=== PATIENT | female | born 1935 | race Caucasian/White ===

== ENCOUNTER → 2016-10-27 | Outpatient (CLI) | payer MEDICARE ==
[~2016-10-27] MED LIST: ALN70T; AMLO10TA5; ATN50T; GLUCO/CHON; HCT25T; IRB150T; KCL10CCR; MULT1TAB63; OSCAL PLUS D; SMV20T
--- NOTE | 2016-10-27 16:22 | Diagnostic Imaging Report ---
EXAMINATION: PA and lateral views of the chest. INDICATION: Cough and congestion. Left basilar rales. FINDINGS: The lungs are hyperinflated. The heart size is mildly enlarged. There is a mild pulmonary vascular congestion. No overt pulmonary edema. No effusion or pneumothorax. Mediastinum and alison appear unremarkable. IMPRESSION: Cardiomegaly with mild vascular congestion. Dictated by: Dictated on workstation # [id number]
== END ==
LOC: RAD 15:37
PROVIDERS: ATTEND Internal Medicine
DX: R05 Cough (principal); R09.89 Other specified symptoms and signs involving the circulatory and respiratory systems
CPT/HCPCS: 71020

== ENCOUNTER → 2016-11-25 | Outpatient (CLI) | payer MEDICARE ==
--- OUTSIDE RECORDS SUMMARY | 2016-11-25 09:23 | XMS REPORT | Continuity of Care Document ---
Author Author [facility] Organization [facility] Address Unknown Phone Unavailable Allergies Active Description Code Type Severity Reaction Onset Reported/Identified Relationship to Patient Clinical Status Yes No Known Drug Allergies [id number] Drug Allergy Unknown N/ A 07/25/2008 Medications Problems Date Dx Coded Attending Type Code Diagnosis Diagnosed By 09/08/1424 MEGAN WEBB Ot M79.621 03/28/2014 JHONNY MAYS APRN Ot 787.91 DIARRHEA 04/15/2014 JHONNY MAYS TIMEKEEPER Ot 008.45 INTESTINAL INFECTION DUE TO CLOSTRIDIUM 10/01/2014 CLIVE DUBON MD Ot V76.12 09/19/2015 CLIVE DUBON MD Ot Z12.31 11/03/2015 Ot V76.12 11/03/2015 Ot V76.12 11/03/2015 Ot 793.82 11/03/2015 Ot V76.12 11/03/2015 Ot 793.80 11/03/2015 JHONNY MAYS APRN Ot V76.12 11/03/2015 JHONNY MAYS APRN Ot 786.2 11/03/2015 Ot 787.91 11/03/2015 Ot 008.45 11/03/2015 CLIVE DUBON MD Ot V76.12 11/03/2015 CLIVE DUBON MD Ot Z12.31 12/05/2015 MEGAN WEBB STORM SASH MAKER Ot M79.621 12/11/2015 MEGAN WEBB STORM SASH MAKER Ot M79.621 01/01/2016 MEGAN WEBB Ot M79.621 PAIN IN RIGHT UPPER ARM 03/18/2016 CLIVE DUBON MD Ot 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 03/18/2016 CLIVE DUBON MD Ot I10 ESSENTIAL (PRIMARY) HYPERTENSION 03/18/2016 CLIVE DUBON MD Ot Z79.899 OTHER DRIVABILITY TECHNICIAN (CURRENT) DRUG THERAPY 04/06/2016 CLIVE DUBON MD Ot E88.09 OTH DISORDERS OF PLASMA-PROTEIN METABOLI 04/06/2016 CLIVE DUBON MD Ot I10 ESSENTIAL (PRIMARY) HYPERTENSION 04/06/2016 CLIVE DUBON MD Ot Z79.899 OTHER DRIVABILITY TECHNICIAN (CURRENT) DRUG THERAPY 10/27/2016 Ot V76.12 OTH SCREEN MAMMO-MALIGN NEOPLASM OF DAVID 10/27/2016 Ot 793.82 INCONCLUSIVE MAMMOGRAM 10/27/2016 Ot V76.12 OTH SCREEN MAMMO-MALIGN NEOPLASM OF DAVID 10/27/2016 Ot 793.80 UNSPEC ABNORMAL MAMMOGRAM 10/27/2016 JHONNY MAYS TIMEKEEPER Ot V76.12 OTH SCREEN MAMMO-MALIGN NEOPLASM OF DAVID 10/27/2016 JHONNY MAYS TIMEKEEPER Ot 786.2 COUGH 10/27/2016 Ot 787.91 DIARRHEA 10/27/2016 Ot 008.45 INTESTINAL INFECTION DUE TO CLOSTRIDIUM 10/27/2016 CLIVE DUBON MD Ot V76.12 OTH SCREEN MAMMO-MALIGN NEOPLASM OF DAVID 10/27/2016 CLIVE DUBON MD Ot Z12.31 ENCNTR SCREEN MAMMOGRAM FOR MALIGNANT NE 10/27/2016 CLIVE DUBON MD Ot E88.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 Visit Date/Time Discharge Status Pt. Type Provider Facility Loc./Unit Complaint [id number] 01/01/2016 13:30:00 2015 14:25:00 DIS Outpatient MEGAN WEBB [facility] REHAB R HUMERUS FRACTURE [id number] 08/29/2015 11:10:00 2014 23:59:59 CLS Outpatient CLIVE DUBON MD [facility] RAD ROUTINE SCREENING [id number] 08/14/2014 08:19:00 2013 23:59:59 CLS Outpatient CLIVE DUBON MD [facility] RAD ROUTINE [id number] 01/16/2014 05:28:00 2013 00:01:00 DIS Outpatient JHONNY MAYS TIMEKEEPER [facility] LAB C DIFF [id number] 12/28/2013 10:34:00 2013 00:01:00 DIS Outpatient JHONNY MAYS TIMEKEEPER [facility] LAB DIARRHEA [id number] 12/17/2013 11:29:00 2013 23:59:59 CLS Outpatient JHONNY MAYS TIMEKEEPER [facility] RAD COUGH [id number] 08/08/2013 08:37:00 2012 23:59:59 CLS Outpatient JHONNY MAYS TIMEKEEPER [facility] RAD ROUTINE [id number] 10/27/2016 15:37:00 ACT Outpatient CLIVE DUBON MD [facility] RAD COUGH,CONGESTION [id number] 03/16/2016 09:09:00 ACT Outpatient CLIVE DUBON MD [facility] LAB HTN, HALF-WAY MED USE,PLASMA PROTEIN META DISORDE [id number] 04/16/2014 00:00:00 Document Registration [id number] 03/29/2014 00:00:00 Document Registration [id number] 07/11/2012 08:04:00 Document Registration [id number] 06/21/2012 14:16:00 Document Registration [id number] 05/24/2011 09:42:00 Document Registration [id number] 05/15/2010 08:51:00 Document Registration
--- NOTE | 2016-11-26 09:41 | Diagnostic Imaging Report ---
Bilateral screening mammogram The current study was also evaluated with a Computer Aided Detection (CAD) system. Indication: Screening. No current complaints stated on the questionnaire. COMPARISON: 08/29/15. FINDINGS: The breasts are composed of scattered fibroglandular densities. A somewhat nodular appearance to the parenchyma is seen, similar to prior multiple exams including 2012 study. There is however one area that appears slightly more prominent in the central aspect of the right MLO view which could be technique or positional related accentuating this region measuring 9 mm. The left breast demonstrate no definite change. IMPRESSION: Focal compression view and ultrasound evaluation for slightly increased density asymmetry measuring 9 mm, seen in central location in the right MLO view. BI-RADS 0. ACR BI-RADS Category 0: Incomplete. (Needs additional imaging evaluation). Result letter will be mailed to the patient. Note: At least 10% of breast cancer is not imaged by mammography. Dictated by: Dictated on workstation # [id number]
== END ==
LOC: RAD 09:18
PROVIDERS: ATTEND Internal Medicine
DX: Z12.31 Encounter for screening mammogram for malignant neoplasm of breast (principal)
CPT/HCPCS: 77067

== ENCOUNTER → 2016-12-03 | Outpatient (CLI) | payer MEDICARE ==
--- OUTSIDE RECORDS SUMMARY | 2016-12-03 08:15 | XMS REPORT | Continuity of Care Document ---
Author Author [facility] Organization [facility] Address Unknown Phone Unavailable Allergies Active Description Code Type Severity Reaction Onset Reported/Identified Relationship to Patient Clinical Status Yes No Known Drug Allergies [id number] Drug Allergy Unknown N/ A 07/25/2008 Medications Problems Date Dx Coded Attending Type Code Diagnosis Diagnosed By 09/08/1424 MEGAN WEBB Ot M79.621 03/28/2014 JHONNY MAYS APRN Ot 787.91 DIARRHEA 04/15/2014 JHONNY MAYS GRINDER OUTSIDE DIAMETER Ot 008.45 INTESTINAL INFECTION DUE TO CLOSTRIDIUM [...] DUBON MD Ot Z12.31 12/05/2015 MEGAN WEBB TOWBOAT OPERATOR Ot M79.621 12/11/2015 MEGAN WEBB TOWBOAT OPERATOR Ot M79.621 01/01/2016 MEGAN WEBB Ot M79.621 PAIN IN RIGHT UPPER ARM 03/18/2016 CLIVE DUBON MD Ot 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 03/18/2016 CLIVE DUBON MD Ot I10 ESSENTIAL (PRIMARY) HYPERTENSION 03/18/2016 CLIVE DUBON MD Ot Z79.899 OTHER FURRIER DESIGNER (CURRENT) DRUG THERAPY 04/06/2016 CLIVE DUBON MD Ot E88.09 OTH DISORDERS OF PLASMA-PROTEIN METABOLI 04/06/2016 CLIVE DUBON MD Ot I10 ESSENTIAL (PRIMARY) HYPERTENSION 04/06/2016 CLIVE DUBON MD Ot Z79.899 OTHER FURRIER DESIGNER (CURRENT) DRUG THERAPY 10/27/2016 Ot V76.12 OTH SCREEN MAMMO-MALIGN NEOPLASM OF DAVID 10/27/2016 Ot 793.82 INCONCLUSIVE MAMMOGRAM 10/27/2016 Ot V76.12 OTH SCREEN MAMMO-MALIGN NEOPLASM OF DAVID 10/27/2016 Ot 793.80 UNSPEC ABNORMAL MAMMOGRAM 10/27/2016 JHONNY MAYS GRINDER OUTSIDE DIAMETER Ot V76.12 OTH SCREEN MAMMO-MALIGN NEOPLASM OF DAVID 10/27/2016 JHONNY MAYS GRINDER OUTSIDE DIAMETER Ot 786.2 COUGH 10/27/2016 Ot 787.91 DIARRHEA [...] 10/27/2016 CLIVE DUBON MD Ot Z79.899 OTHER FURRIER DESIGNER (CURRENT) DRUG THERAPY 11/18/2016 CLIVE DUBON MD Ot R05 COUGH 11/18/2016 CLIVE DUBON MD Ot R09.89 OTH SYMPTOMS AND SIGNS INVOLVING THE CIR 11/24/2016 CLIVE DUBON MD Ot R05 COUGH 11/24/2016 CLIVE DUBON MD Ot R09.89 OTH SYMPTOMS AND SIGNS INVOLVING THE CIR 11/25/2016 Ot 793.82 INCONCLUSIVE MAMMOGRAM 11/25/2016 Ot V76.12 OTH SCREEN MAMMO-MALIGN NEOPLASM OF DAVID 11/25/2016 Ot 793.80 UNSPEC ABNORMAL MAMMOGRAM 11/25/2016 JHONNY MAYS GRINDER OUTSIDE DIAMETER Ot V76.12 OTH SCREEN MAMMO-MALIGN NEOPLASM OF DAVID 11/25/2016 JHONNY MAYS GRINDER OUTSIDE DIAMETER Ot 786.2 COUGH 11/25/2016 Ot 787.91 DIARRHEA 11/25/2016 Ot 008.45 INTESTINAL INFECTION DUE TO CLOSTRIDIUM 11/25/2016 CLIVE DUBON MD Ot V76.12 OT SCREEN MAMMO-MALIGN NEOPLASM OF DAVID 11/25/2016 CLIVE DUBON MD Ot Z12.31 ENCNTR SCREEN MAMMOGRAM FOR MALIGNANT NE 11/25/2016 CLIVE DUBON MD Ot 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 Visit Date/Time Discharge Status Pt. Type Provider Facility Loc./Unit Complaint [id number] 01/01/2016 13:30:00 2015 14:25:00 DIS Outpatient MEGAN WEBB [facility] REHAB R HUMERUS FRACTURE [id number] 08/29/2015 11:10:00 2014 23:59:59 CLS Outpatient CLIVE DUBON MD [facility] RAD ROUTINE SCREENING [id number] 08/14/2014 08:19:00 2013 23:59:59 CLS Outpatient CLIVE DUBON MD [facility] RAD ROUTINE [id number] 01/16/2014 05:28:00 2013 00:01:00 DIS Outpatient JHONNY MAYS APRN [facility] LAB C DIFF [id number] 12/28/2013 10:34:00 2013 00:01:00 DIS Outpatient JHONNY MAYS APRN [facility] LAB DIARRHEA [id number] 12/17/2013 11:29:00 2013 23:59:59 CLS Outpatient JHONNY MAYS APRN [facility] RAD COUGH [id number] 08/08/2013 08:37:00 2012 23:59:59 CLS Outpatient JHONNY MAYS APRN [facility] RAD ROUTINE [id number] 11/25/2016 09:18:00 ACT Outpatient CLIVE DUBON MD [facility] RAD SCREENING [id number] 10/27/2016 15:37:00 ACT Outpatient CLIVE DUBON MD [facility] RAD COUGH,CONGESTION [id number] 03/16/2016 09:09:00 ACT Outpatient CLIVE DUBON MD [facility] LAB HTN, FURRIER DESIGNER MED USE,PLASMA PROTEIN META DISORDE [id number] 04/16/2014 00:00:00 Document Registration [id number] 03/29/2014 00:00:00 Document Registration [id number] 07/11/2012 08:04:00 Document Registration [id number] 06/21/2012 14:16:00 Document Registration [id number] 05/24/2011 09:42:00 Document Registration [id number] 05/15/2010 08:51:00 Document Registration
--- NOTE | 2016-12-03 19:16 | Diagnostic Imaging Report ---
Unilateral diagnostic right mammogram. INDICATION: Abnormal screening mammogram. The current study was also evaluated with a Computer Aided Detection (CAD) system. FINDINGS: The recent screening mammogram performed on 11/25/16 noted a small 9 mm asymmetry in the central aspect of the right breast. Compression views of this area show no definite abnormality. The area in question may have been secondary to superimposition. Even so, I would recommend that ultrasound be performed for further evaluation. IMPRESSION: There is no evidence of malignancy. Ultrasound would be recommended for further evaluation. ACR BI-RADS Category 0: Incomplete. (Needs additional imaging evaluation). Result letter will be mailed to the patient. Note: At least 10% of breast cancer is not imaged by mammography. Dictated by: Dictated on workstation # [id number]
--- NOTE | 2016-12-03 19:50 | Diagnostic Imaging Report ---
INDICATION: Abnormal mammogram. EXAMINATION: Ultrasound of the right breast. FINDINGS: The screening mammogram performed on 11/25/16 noted a small area of increased density in the central aspect of the right breast on the MLO view. The diagnostic mammogram performed earlier today failed to show any definite evidence for malignancy. On this study, there is a small 7 x 5 x 6 mm triangular hypoechoic area in the 8 o'clock position of the right breast, approximately 7 cm deep to the nipple. There is no internal vascularity associated with this finding and this hypoechoic area may merely be secondary to fibroglandular tissue. Even so, the possibility that this is related to a small malignant process should still be considered. I would recommend that an ultrasound-guided biopsy of this area be performed to exclude malignancy. IMPRESSION: 1. The small hypoechoic lesion in the 8 o'clock position of the right breast is questionable for a neoplastic mass. Recommendations as above. 2. These results were called to Dr. Brittany Olivares's office. CRITICAL FINDING ACR BI-RADS Category 4A: Low suspicion of malignancy. Result letter will be mailed to the patient. Note: At least 10% of breast cancer is not imaged by mammography. Dictated by: Dictated on workstation # [id number]
== END ==
LOC: RAD 08:12
PROVIDERS: ATTEND Internal Medicine
DX: R92.8 Other abnormal and inconclusive findings on diagnostic imaging of breast (principal); N63 Unspecified lump in breast

== ENCOUNTER → 2016-12-10 | Outpatient (CLI) | payer MEDICARE ==
[~2016-12-10] VITALS: Ht 157.5 cm; Wt 61.7 kg
[~2016-12-10] MED LIST changes: +LIDOCAINE 1% INJ 20 ML (XYLOCAINE) VIAL ONE
--- OUTSIDE RECORDS SUMMARY | 2016-12-10 09:07 | XMS REPORT | Continuity of Care Document ---
Author Author [facility] Organization [facility] Address Unknown Phone Unavailable Allergies Active Description Code Type Severity Reaction Onset Reported/Identified Relationship to Patient Clinical Status Yes No Known Drug Allergies [id number] Drug Allergy Unknown N/ A 07/25/2008 Medications Problems Date Dx Coded Attending Type Code Diagnosis Diagnosed By 09/08/1424 MEGAN WEBB Ot M79.621 03/28/2014 JHONNY MAYS APRN Ot 787.91 DIARRHEA 04/15/2014 JHONNY MAYS BIT SHAVER Ot 008.45 INTESTINAL INFECTION DUE TO CLOSTRIDIUM [...] DUBON MD Ot Z12.31 12/05/2015 MEGAN WEBB CONTACT CENTER REP Ot M79.621 12/11/2015 MEGAN WEBB CONTACT CENTER REP Ot M79.621 01/01/2016 MEGAN WEBB Ot M79.621 PAIN IN RIGHT UPPER ARM 03/18/2016 CLIVE DUBON MD Ot 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 03/18/2016 CLIVE DUBON MD Ot I10 ESSENTIAL (PRIMARY) HYPERTENSION 03/18/2016 CLIVE DUBON MD Ot Z79.899 OTHER AIR QUALITY CONSULTANT (CURRENT) DRUG THERAPY 04/06/2016 CLIVE DUBON MD Ot E88.09 OTH DISORDERS OF PLASMA-PROTEIN METABOLI 04/06/2016 CLIVE DUBON MD Ot I10 ESSENTIAL (PRIMARY) HYPERTENSION 04/06/2016 CLIVE DUBON MD Ot Z79.899 OTHER AIR QUALITY CONSULTANT (CURRENT) DRUG THERAPY 10/27/2016 Ot V76.12 OTH SCREEN MAMMO-MALIGN NEOPLASM OF DAVID 10/27/2016 Ot 793.82 INCONCLUSIVE MAMMOGRAM 10/27/2016 Ot V76.12 OTH SCREEN MAMMO-MALIGN NEOPLASM OF DAVID 10/27/2016 Ot 793.80 UNSPEC ABNORMAL MAMMOGRAM 10/27/2016 JHONNY MAYS BIT SHAVER Ot V76.12 OTH SCREEN MAMMO-MALIGN NEOPLASM OF DAVID 10/27/2016 JHONNY MAYS BIT SHAVER Ot 786.2 COUGH 10/27/2016 Ot 787.91 DIARRHEA 10/27/2016 Ot 008.45 INTESTINAL INFECTION DUE TO CLOSTRIDIUM 10/27/2016 CLIVE DBUON MD Ot V76.12 OTH SCREEN MAMMO-MALIGN NEOPLASM OF DAVID 10/27/2016 CLIVE DUBON MD Ot Z12.31 ENCNTR SCREEN MAMMOGRAM FOR MALIGNANT NE 10/27/2016 CLIVE DUBON MD Ot E88.09 OTH DISORDERS OF PLASMA-PROTEIN METABOLI 10/27/2016 CLIVE DUBON MD Ot I10 ESSENTIAL (PRIMARY) HYPERTENSION 10/27/2016 CLIVE DUBON MD Ot Z79.899 OTHER AIR QUALITY CONSULTANT (CURRENT) DRUG THERAPY 11/18/2016 CLIVE DUBON MD [...] 793.80 UNSPEC ABNORMAL MAMMOGRAM 11/25/2016 JHONNY MAYS BIT SHAVER Ot V76.12 OTH SCREEN MAMMO-MALIGN NEOPLASM OF DAVID 11/25/2016 JHONNY MAYS BIT SHAVER Ot 786.2 COUGH 11/25/2016 Ot 787.91 DIARRHEA 11/25/2016 Ot 008.45 INTESTINAL INFECTION DUE TO CLOSTRIDIUM 11/25/2016 CLIVE DUBON MD Ot V76.12 OTH SCREEN MAMMO-MALIGN NEOPLASM OF DAVID 11/25/2016 CLIVE DUBON MD Ot Z12.31 ENCNTR SCREEN MAMMOGRAM FOR MALIGNANT NE 11/25/2016 CLIVE DUBON MD Ot E88.09 OTH DISORDERS OF PLASMA-PROTEIN METABOLI 11/25/2016 CLIVE DUBON MD, Ot I10 ESSENTIAL (PRIMARY) HYPERTENSION 11/25/2016 CLIVE DUBON MD Ot Z79.899 OTHER AIR QUALITY CONSULTANT (CURRENT) DRUG THERAPY 11/25/2016 CLIVE DUBON MD, Ot R05 COUGH 11/25/2016 CLIVE DUBON MD, Ot R09.89 OTH SYMPTOMS AND SIGNS INVOLVING THE CIR 12/06/2016 CLIVE DUBON MD Ot R92.2 INCONCLUSIVE MAMMOGRAM 12/07/2016 CLIVE DUBON MD, Ot N63 UNSPECIFIED LUMP IN BREAST 12/07/2016 CLIVE DUBON MD, Ot R92.8 OTH ABN AND INCONCLUSIVE FINDINGS ON DX Procedures Results Encounters ACCT No. Visit Date/Time Discharge Status Pt. Type Provider Facility Loc./Unit Complaint [id number] 01/01/2016 13:30:00 2015 14:25:00 DIS Outpatient MEGAN WEBB [facility] REHAB R HUMERUS FRACTURE [id number] 08/29/2015 11:10:00 2014 23:59:59 CLS Outpatient CLIVE DUBON MD [facility] RAD ROUTINE SCREENING [id number] 08/14/2014 08:19:00 2013 23:59:59 CLS Outpatient CLIVE DUBON MD [facility] RAD ROUTINE [id number] 01/16/2014 05:28:00 2013 00:01:00 DIS Outpatient JHONNY MAYS APRN [facility] LAB C DIFF [id number] 12/28/2013 10:34:00 2013 00:01:00 DIS Outpatient JHONNY MAYS APRN [facility] LAB DIARRHEA [id number] 12/17/2013 11:29:00 2013 23:59:59 CLS Outpatient JHONNY MAYS APRN [facility] RAD COUGH [id number] 08/08/2013 08:37:00 2012 23:59:59 CLS Outpatient JHONNY MAYS APRN [facility] RAD ROUTINE [id number] 12/03/2016 08:12:00 ACT Outpatient CLIVE DUBON MD [facility] RAD ABNORMAL MAMMO [id number] 11/25/2016 09:18:00 ACT Outpatient CLIVE DUBON MD [facility] RAD SCREENING [id number] 10/27/2016 15:37:00 ACT Outpatient CLIVE DUBON MD [facility] RAD COUGH,CONGESTION [id number] 03/16/2016 09:09:00 ACT Outpatient CLIVE DUBON MD [facility] LAB HTN, AIR QUALITY CONSULTANT MED USE,PLASMA PROTEIN META DISORDE [id number] 04/16/2014 00:00:00 Document Registration [id number] 03/29/2014 00:00:00 Document Registration [id number] 07/11/2012 08:04:00 Document Registration [id number] 06/21/2012 14:16:00 Document Registration [id number] 05/24/2011 09:42:00 Document Registration [id number] 05/15/2010 08:51:00 Document Registration
[2016-12-10 09:20] VITALS: BP 128/74
--- NOTE | 2016-12-10 10:52 | Diagnostic Imaging Report ---
EXAM: Right breast ultrasound.. INDICATION: A nodule at 8:00 o'clock zone, 7 cm from the nipple. This study was performed in preparation for biopsy. FINDINGS: Upon scanning in preparation for biopsy, lesion at the 8:00 o'clock zone, 7 cm from the nipple measuring 0.7 x 0.4 x 0.6 cm. Less prominent compared to the prior exam. This was explained to the patient and given its small size, the biopsy could become challenged, given the relatively isoechoic appearance. The patient prefers to have the followup scans in a few months and the biopsy was canceled. IMPRESSION: Slightly less prominent 0.7 cm hypo to isoechoic nodule at the 8:00 o'clock zone, 7 cm from the nipple, in favor of a benign etiology. Biopsy could be difficult due to the small size of the lesion and the relatively isoechoic appearance and the improved appearance is in favor of a benign process. Four-month followup ultrasound is recommended to observe this lesion. BI-RADS 3. ACR BI-RADS Category 3: Probably benign findings. Result letter will be mailed to the patient. Note: At least 10% of breast cancer is not imaged by mammography. The findings were discussed with Ori, the physician environmental engineering assistant, working with Dr. Olivares by Dr. Slaughter at time of dictation. Dictated by: Dictated on workstation # [id number]
== END ==
LOC: RAD 09:03
PROVIDERS: ATTEND Internal Medicine
DX: R92.8 Other abnormal and inconclusive findings on diagnostic imaging of breast (principal)

== ENCOUNTER → 2017-04-20 | Outpatient (CLI) | payer MEDICARE ==
[~2017-04-20] MED LIST changes: -LIDOCAINE 1% INJ 20 ML (XYLOCAINE) VIAL ONE
--- NOTE | 2017-04-20 15:34 | Diagnostic Imaging Report ---
EXAMINATION: Right breast ultrasound. INDICATION: Followup lesion at the 8 o'clock zone. FINDINGS: At the 8 o'clock zone 7 cm from the nipple, there is a lobulated hypoechoic lesion seen with some shadowing noted. This is measuring minimally larger compared to the 12/10/2016 exam but is overall similar to measurements from 12/03/2016. The current measurements are 0.7 x 0.4 x 0.5 cm. This lesion is indeterminate. No internal flow with color Doppler is seen. IMPRESSION: Indeterminate hypoechoic lobulated lesion at the 8 o'clock zone 7 cm from the nipple measuring 7 mm in size. A diagnostic mammogram will be performed to correlate. ACR BI-RADS Category 0: Incomplete. (Needs additional imaging evaluation). Dictated by: Dictated on workstation # [id number]
--- NOTE | 2017-04-20 17:16 | Diagnostic Imaging Report ---
EXAMINATION: Right breast diagnostic mammogram with 2D and 3D mammography. Tomographic images were obtained. INDICATION: Right breast nodule seen on ultrasound. The current study was also evaluated with a Computer Aided Detection (CAD) system. FINDINGS: The ultrasound appears to have a possibly correlating focal asymmetry in the outer aspect of the right breast. This is, however, less defined on the mammographic evaluation. IMPRESSION: 1. Indeterminate lateral left breast focal asymmetry could potentially correspond with lesion that is better seen on ultrasound. It is an indeterminate nodule and evaluation with ultrasound-guided biopsy is recommended. 2. The imaging findings and recommendations on this exam were personally discussed with the patient at 3 PM. ACR BI-RADS Category 4A: Low suspicion of malignancy. Result letter will be mailed to the patient. Note: At least 10% of breast cancer is not imaged by mammography. Dictated by: Dictated on workstation # [id number]
== END ==
LOC: RAD 13:32
PROVIDERS: ATTEND Internal Medicine
DX: N63 Unspecified lump in breast (principal)

== ENCOUNTER → 2017-04-26 | Outpatient (CLI) | payer MEDICARE ==
[~2017-04-26] VITALS: Ht 157.5 cm; Wt 61.7 kg
[~2017-04-26] MED LIST changes: +LIDOCAINE 1% INJ 20 ML (XYLOCAINE) VIAL INJ ONE
[2017-04-26 09:20] VITALS: BP 132/80
[2017-04-26 10:20] VITALS: BP 130/70
--- NOTE | 2017-04-26 11:04 | Diagnostic Imaging Report ---
EXAMINATION: Vacuum-assisted ultrasound-guided biopsy of breast mass right. A metallic clip placed to timothy biopsy site. INDICATION: Right breast mass. CONSENT: Informed consent was obtained from the patient. The risks, benefits, potential complications and alternatives were reviewed and all questions answered to the patient's satisfaction. FINDINGS: Ultrasound images demonstrate right breast mass at the o'clock zone. PROCEDURE: After sterile preparation and draping, 1% lidocaine was utilized for local anesthesia. A vacuum-assisted biopsy device with 14-gauge needle was introduced under live ultrasound guidance into the lesion. Good needle position was documented with ultrasound images. A metallic clip was placed to timothy the site of the biopsy. A subsequent mammogram is performed and confirms the proper positioning of the clip. Multiple samples were obtained and sent to pathology. The patient tolerated the procedure well with no immediate complications. IMPRESSION: Successful ultrasound-guided biopsy of 8:00 right breast mass. A metallic clip placed to timothy biopsy site. Dictated by: Dictated on workstation # [id number]
--- NOTE | 2017-04-26 19:23 | Diagnostic Imaging Report ---
CC and lateral views of the right breast. INDICATION: Post biopsy clip position documentation. FINDINGS: There is a clip placement which appears to correlate with the previously seen nodule along the outer aspect of the right breast. The biopsy was performed by ultrasound with satisfactory clip position along the biopsy site seen. IMPRESSION: Satisfactory clip position along the site of the lateral right breast nodule. Pathology results are pending. ACR BI-RADS Category 4A: Low suspicion of malignancy. Result letter will be mailed to the patient. Note: At least 10% of breast cancer is not imaged by mammography. Dictated by: Dictated on workstation # [id number]
== END ==
LOC: RAD 09:13
PROVIDERS: ATTEND Nurse Practitioner
DX: N63 Unspecified lump in breast (principal)
CPT/HCPCS: 19083; 88305

== ENCOUNTER → 2017-11-28 | Outpatient (CLI) | payer MEDICARE ==
[~2017-11-28] MED LIST changes: -LIDOCAINE 1% INJ 20 ML (XYLOCAINE) VIAL INJ ONE
--- NOTE | 2017-11-28 12:24 | Diagnostic Imaging Report ---
INDICATION: Six-month followup. The patient had a recent right breast biopsy with a benign result. COMPARISON: 04/20/2017, 11/25/2016, and 08/29/2015. TECHNIQUE: Digital diagnostic mammography was performed bilaterally with a Computer Aided Detection (CAD) system. FINDINGS: There are multiple rounded densities bilaterally, consistent with skin lesions. There are scattered fibroglandular densities bilaterally. No spiculated mass or malignant appearing microcalcifications are seen. There is a biopsy clip in the outer right breast. The axillae are unremarkable. IMPRESSION: No mammographic features suspicious for malignancy are identified. ACR BI-RADS Category 2: Benign findings. Result letter will be mailed to the patient. Note: At least 10% of breast cancer is not imaged by mammography. Dictated by: Dictated on workstation # [id number]
== END ==
LOC: RAD 08:39
PROVIDERS: ATTEND Physician Assistant
DX: R92.8 Other abnormal and inconclusive findings on diagnostic imaging of breast (principal)
CPT/HCPCS: 77066

== ENCOUNTER → 2018-08-24 | Outpatient (CLI) | payer MEDICARE | LOC: LAB 15:47 | PROVIDERS: ATTEND Nurse Practitioner | DX: N39.0 Urinary tract infection, site not specified (principal) | CPT/HCPCS: 87088 ==

== ENCOUNTER → 2018-09-21 | Outpatient (CLI) | payer MEDICARE ==
--- NOTE | 2018-09-21 12:00 | Diagnostic Imaging Report ---
INDICATION: Chronic low back pain Lumbar spine AP and lateral views of lumbar spine show compression fracture of L2 involving the superior and inferior endplates. Age of this is indeterminate. There are no prior studies available for comparison. There is a slight scoliotic curvature convex to the left. Alignment is normal. Intervertebral disc spaces are preserved. IMPRESSION: L2 compression fracture of indeterminate age. Dictated by: Dictated on workstation # [id number]
--- NOTE | 2018-09-21 17:46 | Diagnostic Imaging Report ---
INDICATION: Back pain, hand arthritis. AP, oblique, and lateral views of both hands are obtained. On the right side, there is diffuse degenerative change with degenerative change throughout the interphalangeal joints as well as degenerative change throughout the MCP joints especially in the first digit. There is mild degenerative change of the first carpometacarpal joint, radiocarpal joint, and midcarpal joint on the radial side. There is no acute fracture. On the left side, there is also diffuse degenerative change throughout the interphalangeal joints and MCP joints. There is degenerative change of the first carpometacarpal joint and midcarpal joint on the radial side and mild degenerative change of the radiocarpal joint. There is no acute bony abnormality. IMPRESSION: Diffuse osteoarthritic changes of the hands on both sides as described above. Dictated by: Dictated on workstation # [id number]
== END ==
LOC: RAD 11:14
PROVIDERS: ATTEND Internal Medicine
DX: S32.020D Wedge compression fracture of second lumbar vertebra, subsequent encounter for fracture with routine healing (principal); M19.041 Primary osteoarthritis, right hand; M19.042 Primary osteoarthritis, left hand
CPT/HCPCS: 72100

== ENCOUNTER → 2018-10-16 | Outpatient (CLI) | payer MEDICARE ==
--- NOTE | 2018-10-16 15:00 | Diagnostic Imaging Report ---
INDICATION: Cough and shortness of breath. TIME OF EXAM: 2:59 p.m. COMPARISON: Comparison is made with prior chest from 10/27/2016. FINDINGS: The heart is mildly enlarged but stable. There is some ectasia and tortuosity of the descending thoracic aorta. The lungs are clear. The pulmonary vascularity is normal. No effusion or pneumothorax is identified. IMPRESSION: Cardiomegaly. No acute cardiopulmonary process is detected. Dictated by: Dictated on workstation # [id number]
== END ==
LOC: RAD 14:23
PROVIDERS: ATTEND Physician Assistant
DX: I51.7 Cardiomegaly (principal); R06.02 Shortness of breath
CPT/HCPCS: 71046

== ENCOUNTER → 2019-02-01 | Outpatient (CLI) | payer MEDICARE | LOC: CARD 10:50 | PROVIDERS: ATTEND Internal Medicine | DX: R00.2 Palpitations (principal) | CPT/HCPCS: 93005 ==

== ENCOUNTER → 2019-02-07 | Outpatient (CLI) | payer MEDICARE ==
[~2019-02-07] MED LIST changes: +CATHETER FLUSH 10 ML SYR IV PRN; +REGADENOSON 0.4 MG/5 ML SYR (LEXISCAN) IV ONE; +meTOprolol 5 MG/5 ML (LOPRESSOR) VIAL IV ONE; +meTOprolol 5 MG/5 ML (LOPRESSOR) VIAL ONE
[2019-02-07 10:09] VITALS: BP 148/85
[2019-02-07 10:17] VITALS: BP 135/75
--- NOTE | 2019-02-07 19:24 | STRESS TEST ---
DATE OF SERVICE: 02/07/2019 LEXISCAN MYOVIEW STRESS TEST REPORT REFERRING PHYSICIAN: Dr. Olivares. INDICATION: Atrial fibrillation, hypertension. Baseline heart rate is 105. Baseline blood pressure 148/85. Baseline EKG is atrial fibrillation with no ischemic changes. In summary, the patient was injected with 10.91 mCi of technetium-99 Myoview and the resting images were obtained. Then, she received 0.4 mg of Lexiscan followed by 29.9 mCi of technetium-99 Myoview. Throughout the test, there were no EKG changes. The resting and stress images were reviewed and compared in the short axis, horizontal long axis, and vertical long axis views. Review of the images showed breast attenuation with decreased uptake at the mid to apical anterior wall and anterolateral wall and mild decreased uptake at the anteroseptum with reversibility. SSS is 10, SDS 6, TID value 1.01. On the gated images, the left ventricle appeared to be normal size with normal contractility. Calculated ejection fraction 77%. CONCLUSION: 1. The patient tolerated Lexiscan well. 2. Baseline atrial fibrillation persisted throughout test. 3. Breast attenuation with reversible ischemia involving the mid to apical anterior wall, anterolateral wall and anteroseptum. 4. Normal left ventricular size with normal contractility. Calculated ejection fraction 77%. Job ID: [id number] DocumentID: [id number] Dictated Date: 02/07/2019 15:06:38 Vp Customer Service Date: 02/07/2019 19:24:14 Dictated By: CASS BENZ MD
== END ==
LOC: CARD 08:03
PROVIDERS: ATTEND Internal Medicine Cardiovascular Disease
DX: I48.0 Paroxysmal atrial fibrillation (principal); I48.2 Chronic atrial fibrillation; I10 Essential (primary) hypertension; R00.2 Palpitations
CPT/HCPCS: 78452; 93017

== ENCOUNTER 2019-02-14 10:38 | Day surgery (SDC) | payer MEDICARE ==
[2019-02-14] VITALS (12 sets, daily range): BP systolic 121–158; BP diastolic 75–110
[~2019-02-14] VITALS: Ht 157.5 cm; Wt 61.2 kg
[~2019-02-14 10:38] MED LIST changes: -CATHETER FLUSH 10 ML SYR IV PRN; -IRB150T; +IRB150T PO; -KCL10CCR; +KCL10CCR PO; -REGADENOSON 0.4 MG/5 ML SYR (LEXISCAN) IV ONE; -SMV20T; +SMV20T PO; -meTOprolol 5 MG/5 ML (LOPRESSOR) VIAL IV ONE; -meTOprolol 5 MG/5 ML (LOPRESSOR) VIAL ONE
[2019-02-14] MEDS ORDERED: HEParin (CATH LAB) 2,000 ML IV ONE (10:44)
[2019-02-14] MEDS ORDERED: NS IV 1000 ML 1,000 ML ONE (10:44)
[2019-02-14] MEDS ORDERED: LIDOCAINE 1% INJ 20 ML 20 ML VIAL ONE (10:44)
[2019-02-14] MEDS ORDERED: NS IV 1000 ML 1,000 ML IV SCH ×2 (11:00→13:32)
[2019-02-14 11:12] LABS: BILIRUBIN,URINE NEGATIVE (NEGATIVE); CLARITY,URINE CLEAR; COLOR,URINE YELLOW; GLUCOSE, URINE (UA) NEGATIVE (NEGATIVE); KETONES,URINE NEGATIVE (NEGATIVE); LEUKOCYTE ESTERASE ,URINE 1+ (NEGATIVE); NITRITE,URINE NEGATIVE (NEGATIVE); PH,URINE 7 (5-9); PROTEIN,URINE NEGATIVE (NEGATIVE); UROBILINOGEN,URINE NORMAL (NORMAL)
[2019-02-14 11:13] LABS: HEMOGLOBIN 14.4 G/DL (11.5-16.0); MEAN PLATELET VOLUME 10.5 FL (7.4-10.4); RED CELL DISTRIBUTION WIDTH 13.4 % (10.0-14.5); WHITE BLOOD COUNT 6.3 10^3/uL (4.3-11.0)
[2019-02-14 11:27] LABS: INR 0.9 (0.8-1.4); PROTHROMBIN TIME PATIENT 12.8 SEC (12.2-14.7)
[2019-02-14 11:28] LABS: AMORPHOUS SEDIMENT,UR RARE AMOR PHOSPHATE /LPF; BACTERIA,URINE NEGATIVE /HPF
--- NOTE | 2019-02-14 11:29 | Diagnostic Imaging Report ---
INDICATION: Coronary artery disease. TECHNIQUE: A frontal chest was obtained at 1113 hours. COMPARISON: 10/16/2018. FINDINGS: Cardiomegaly is again noted with a tortuous and/or ectatic aorta. There is mild central vascular prominence which is stable. There is no focal infiltrate, pneumothorax, or pleural fluid. IMPRESSION: Cardiomegaly with a tortuous and/or ectatic aorta. Mild central vascular prominence without edema. No acute abnormality. Dictated by: Dictated on workstation # [id number]
[2019-02-14] MEDS ORDERED: MONT10TA24 PO (11:30)
[2019-02-14] MEDS ORDERED: ASPI-983 PO (11:30)
[2019-02-14] MEDS ORDERED: RIVA20TA PO (11:30)
[2019-02-14] MEDS ORDERED: LORA10TA44 PO (11:30)
[2019-02-14] MEDS ORDERED: DILT120C94 PO (11:30)
[2019-02-14] MEDS ORDERED: METO-395 PO (11:30)
[2019-02-14] MEDS ORDERED: FLUT15.88 NS (11:30)
[2019-02-14] MEDS ORDERED: PROP1DRO7 OU (11:30)
[2019-02-14] MEDS ORDERED: ACET-93 PO (11:30)
[2019-02-14 11:33] LABS: ALANINE AMINOTRANSFERASE 20 U/L (0-55); ALBUMIN 4.3 GM/DL (3.2-4.5); ALKALINE PHOSPHATASE 71 U/L (40-136); BILIRUBIN,TOTAL 0.4 MG/DL (0.1-1.0); BUN/CREATININE RATIO 17; CALCIUM 9.9 MG/DL (8.5-10.1); CARBON DIOXIDE 27 MMOL/L (21-32); CHLORIDE 106 MMOL/L (98-107); CHOLESTEROL 153 MG/DL (< 200); CREATININE SERUM 0.78 MG/DL (0.60-1.30); GFR ESTIMATED > 60; GLUCOSE 115 MG/DL (70-105); HDL CHOLESTEROL 41 MG/DL (40-60); POTASSIUM 3.5 MMOL/L (3.6-5.0); SODIUM 141 MMOL/L (135-145); TOTAL PROTEIN 8.6 GM/DL (6.4-8.2); TRIGLYCERIDES 107 MG/DL (<150); VLDL CHOLESTEROL 21 MG/DL (5-40)
[2019-02-14] MEDS ORDERED: fentaNYL INJECTION 100 MCG/2 ML AMP ONE (12:05)
[2019-02-14] MEDS ORDERED: MIDAZOLAM 5 MG/5 ML (VERSED) VIAL ONE (12:05)
--- NOTE | 2019-02-14 13:32 | Cardiac Procedure Note-CS/ASA ---
Pre-Procedure Note Pre-Op Procedure Note H&P Reviewed The H&P was reviewed, patient examined and no changes noted. Date H&P Reviewed: February 14, 2019 Time H&P Reviewed: 13:32 Conscious Sedation Pre-Proced Time 13:32 ASA Score 3 For ASA 3 and 4: Consider anesthesia and medical clearance. Also, for patients with a history of failed moderate sedation consider anesthesia. Airway Lungs Heart ASA score ASA 1: a normal healthy patient ASA 2: a patient with a mild systemic disease (mid diabetes, controlled hypertension, obesity x ASA 3: a patient with a severe systemic disease that limits activity (angina , COPD, prior Myocardial infarction) ASA 4: a patient with an incapacitating disease that is a constant threat to life (CHF, renal failure) ASA 5: a moribund patient not expected to survive 24 hrs. (ruptured aneurysm) ASA 6: a declared brain- patient whose organs are being harvested. For emergent operations, add the letter E after the classification Mallampati Classification Grade 3 Sedation Plan Analgesia, Amnesia, Plan communicated to team members, Discussed options with patient/fam, Discussed risks with patient/fam The patient is an appropriate candidate to undergo the planned procedure, sedation, and anesthesia. The patient immediately re-assessed prior to indication. CASS BENZ MD February 14, 2019 13:32
--- NOTE | 2019-02-14 13:34 | Discharge Inst-Post CATH ---
Discharge Inst-CATH/EP Post Cardiac Cath/EP D/C Inst Follow Up/Plan Appointment with Dr. BENZ's office in 2-4 weeks <b>CARDIAC CATH/EP PROCEDURE DISCHARGE INSTRUCTIONS</b> Cardiac Rehab Please be expecting a follow up call from Cardiac Rehab within in one week. ACTIVITY * Go Home directly and rest. * Limit activity of the leg (or wrist if it was used) for 7 days including aerobics, swimming, jogging, bicycling, etc. * Restrict stair-climbing for 7 days if possible, if not, climb up with your non -cath leg, then bring together on the same step. * Avoid lifting, pushing, pulling or excessive movement of the affected extremity for 7 days. * Customary sexual activity may be resumed after 2 days-use caution not to use a position that strains or causes pain to the affected extremity. * No driving for 24 hours. * NO SMOKING. * Avoid straining for bowel movements for 7 days. * Gentle walking on level ground is allowed. * Returning to work will depend on the type of procedure and the results. Your doctor will discuss this with you. CALL YOUR DOCTOR FOR ANY OF THE FOLLOWING: *If bleeding from the puncture site occurs- Apply gentle pressure to site with clean cloth and call your doctor or EMS. * If a knot or lump forms under the skin, increases in size, or causes pain. * If bruising appears to be worsening or moving further down your leg instead of disappearing. * Temperature above 101 F. CARE OF YOUR GROIN INCISION; * Bruising or purple discoloration of the skin near the puncture site is common. * You may shower only, no bathtub bathing for 5 days. Be careful to avoid slipping as your leg may feel stiff. * If a closure device was used on your femoral artery, please see the attached guide regarding care of the device and your leg. * Leave dressing on FOR 24 hours. CARE OF YOUR WRIST INCISION; * Bruising or purple discoloration of the skin near the puncture site is common. * You may shower. * DO NOT submerge wrist. * Leave dressing on FOR 24 hours. CASS BENZ MD February 14, 2019 13:34
--- NOTE | 2019-02-14 13:40 | Cardiac Cath Report ---
Cardiac Cath Report Physician (s)/Rope Laying Machine Operator (s) Physician CASS BENZ MD Pre-Procedure Diagnosis Pre-Procedure Diagnosis: coronary artery disease, pulmonary hypertension Post-Procedure Note Procedure Start Date: February 14, 2019 Name of Procedure: Right and left heart catheterization Aortic arch angiogram Abdominal aortogram Findings/Procedure Note PROCEDURE NOTE: 83-year-old lady with history of pulmonary hypertension, severe, had an abnormal stress test, she was scheduled for right to left heart catheterization. During the procedure I had significant difficulty advancing the catheters through the iliac artery, long exchange wire was used. I evaluated abdominal aortogram and evaluated the bifurcation and evaluated the aortic arch. After explaining the procedure to the patient, all pros and cons were explained , all questions were answered. The patient signed the consent and then she was placed on the cardiac catheterization laboratory. Groin was prepped SL fashion local anesthesia was used. Sheath placed in the right femoral artery. Faisal right and left catheter were used to access the coronary system. Pigtail was used to access the left ventricular cavity. Left ventriculogram was done Aortic arch angiogram was done, a dominant aortogram and evaluation of the bifurcation was made, the inferior mesenteric artery was normal, the renal arteries were not visualized At the end of the procedure the sheath was removed. Closure device FINDINGS: Hemodynamics LV 151/26, end-diastolic pressure of 26 Aorta 165/99 mean of 126 RV 46/13, end-diastolic pressure of 13 PA 47/26 mean of 35 RA 14 Oxygen saturation: PA 68.5, RV 67.2, are a 66.4, LRA 65.9, FA 92.6 Cardiac output by Buzz 3.29, cardiac index 2.04 ANATOMY: Left Main history of obstructive disease Left Anterior Descending has mild disease, slow flow in the LAD nonobstructive disease Left Circumflex has mild disease with slow flow obstructive disease Right Coronory Artery dominant artery with no significant obstructive disease LV Gram is normal in size with normal contractile TSH ejection fraction 60 percent Aorta evaluation done with aortic arch angiogram which showed hypertensive changes in the aortic arch, no dissection or aneurysm, slightly tortuous great vessels of the neck. Abdominal aortogram done to evaluate the bifurcation which showed tortuosity in the iliac artery, no dissection, no aneurysm nonobstructive disease CONCLUSION: 1. Slow flow in the left coronary system, small vessel disease nonobstructive disease 2. Otherwise no significant obstructive disease 3. Normal left ventricular size and systolic function estimated ejection fraction 60 percent, mild to moderate mitral regurgitation 4. Normal aortic arch and great vessels of the neck 5. Normal abdominal aorta and bifurcation with tortuous iliac arteries 6. Pulmonary hypertension with no significant shunt DISCUSSION AND RECOMMENDATION: continue with medical therapy Anesthesia Type: Conscious Sedation Estimated blood loss (mL): 35 ml Contrast Amount: 68 ml Total Radiation Dose: 351 mGy Post-Procedure Diagnosis Post-operative diagnosis: Coronary artery disease Hypertension Pulmonary hypertension Hyperlipidemia CASS BENZ MD February 14, 2019 13:40
[2019-02-14] MEDS ORDERED: PATIENT MAY USE OWN MEDS, ALL PO SCH (13:45)
== END 2019-02-14 18:10 | disposition home or self-care (01) ==
LOC: CATH 10:38 → SDC 13:57 → CATH 18:10
PROVIDERS: ATTEND Internal Medicine Cardiovascular Disease
DX: I25.10 Atherosclerotic heart disease of native coronary artery without angina pectoris (principal); I10 Essential (primary) hypertension; I27.20 Pulmonary hypertension, unspecified; E78.5 Hyperlipidemia, unspecified; I48.0 Paroxysmal atrial fibrillation; R00.1 Bradycardia, unspecified; I08.3 Combined rheumatic disorders of mitral, aortic and tricuspid valves; I65.23 Occlusion and stenosis of bilateral carotid arteries; Z79.01 Long term (current) use of anticoagulants; Z79.82 Long term (current) use of aspirin; Z79.899 Other long term (current) drug therapy; M54.9 Dorsalgia, unspecified; Z88.2 Allergy status to sulfonamides
CPT/HCPCS: 36221; 36415; 71045; 75625; 80053; 80061; 81000; 82810; 85027; 85610; 85730; 87081; 93460

== ENCOUNTER 2019-03-03 10:30 | Emergency (ER) | payer MEDICARE | END 2019-03-03 13:07 | disposition home or self-care (01) | LOC: ER 10:30 ==

== ENCOUNTER → 2019-04-10 | Outpatient (CLI) | payer MEDICARE ==
[~2019-04-10] MED LIST changes: +ACET-93 PO; +ASPI-983 PO; +DILT120C94 PO; +FLUT15.88 NS; +HOLD METFORMIN - RECEIVED CONTRAST 20 ML VIAL IV SCH; +IOHEXOL 350 MG/ML 100 ML (OMNIPAQUE 350) VIAL IV ONE; +LORA10TA44 PO; +METO-395 PO; +MONT10TA24 PO; +NS 100 ML (IVPB) BAG IV ONE; +PROP1DRO7 OU; +RIVA20TA PO
[2019-04-10 08:56] LABS: BUN/CREATININE RATIO 19; CREATININE SERUM 0.88 MG/DL (0.60-1.30); GFR ESTIMATED > 60
--- NOTE | 2019-04-10 11:41 | Diagnostic Imaging Report ---
PROCEDURE: CT chest with contrast only. TECHNIQUE: Multiple contiguous axial images were obtained through the chest after administration of intravenous contrast. Auto Exposure Controls were utilized during the CT exam to meet ALARA standards for radiation dose reduction. INDICATION: Shortness of breath and heart disease. FINDINGS: There is minimal scarring in the lung bases. There are no discrete pulmonary nodules, masses, or infiltrates. There is cardiomegaly. The ascending aorta measures 3.6 cm. There is no dissection. There is no pathologically enlarged adenopathy in the chest. There is a left thyroid mass. There is no pneumothorax. There is no pathologically enlarged adenopathy in the chest. The visualized intra-abdominal structures are unremarkable. There is some thoracic spondylosis. There is a chronic appearing L2 compression fracture. IMPRESSION: Cardiomegaly. Minimal scarring in the lung bases. Prominence of the ascending aorta up to 3.6 cm. Dictated by: Dictated on workstation # [id number]
== END ==
LOC: RAD 08:24
PROVIDERS: ATTEND Nurse Practitioner Family
DX: I48.0 Paroxysmal atrial fibrillation (principal); J30.9 Allergic rhinitis, unspecified; I51.7 Cardiomegaly; I77.89 Other specified disorders of arteries and arterioles
CPT/HCPCS: 36415; 71260; 82565; 84520

== ENCOUNTER 2019-05-17 19:38 | Outpatient (CLI) | payer MEDICARE ==
[~2019-05-17 19:38] MED LIST changes: -HOLD METFORMIN - RECEIVED CONTRAST 20 ML VIAL IV SCH; -IOHEXOL 350 MG/ML 100 ML (OMNIPAQUE 350) VIAL IV ONE; -NS 100 ML (IVPB) BAG IV ONE
== END 2019-05-18 07:22 | disposition home or self-care (01) ==
LOC: SLEEP 19:38
PROVIDERS: ATTEND Nurse Practitioner Family
DX: G47.50 Parasomnia, unspecified (principal); J30.9 Allergic rhinitis, unspecified; G47.10 Hypersomnia, unspecified; I48.0 Paroxysmal atrial fibrillation
CPT/HCPCS: 95810

== ENCOUNTER → 2019-05-23 | Day surgery (SDC) | payer MEDICARE ==
[2019-05-23] VITALS (9 sets, daily range): BP systolic 142–170; BP diastolic 81–99
[~2019-05-23] VITALS: Ht 157.5 cm; Wt 59.9 kg
[~2019-05-23] MED LIST changes: +AMIO200T4 PO; +AMIODARONE 200 MG (CORDARONE) TAB PO SCH; +AMIODARONE FOR BOLUS 150 MG in D5W 100 ML IVPB 100 ML IV ONE; +CALC-140 PO; +LIDOCAINE 2% VISCOUS 15 ML UDC ONE; +LIDOCAINE 2% VISCOUS 15 ML UDC PO ONE; +LISI10TA2 PO; +MIDAZOLAM 5 MG/5 ML (VERSED) VIAL ONE; +NS IV 1000 ML 1,000 ML IV SCH; +NS IV 1000 ML 1,000 ML ONE; +proPOfol 200 MG/20 ML (DIPRIVAN) VIAL IV ONE
[2019-05-23 08:09] LABS: HEMOGLOBIN 13.7 G/DL (11.5-16.0); MEAN PLATELET VOLUME 10.2 FL (7.4-10.4); RED CELL DISTRIBUTION WIDTH 13.9 % (10.0-14.5); WHITE BLOOD COUNT 5.6 10^3/uL (4.3-11.0)
[2019-05-23 08:21] LABS: ALANINE AMINOTRANSFERASE 16 U/L (0-55); ALKALINE PHOSPHATASE 91 U/L (40-136); BILIRUBIN,TOTAL 0.3 MG/DL (0.1-1.0); BUN/CREATININE RATIO 15; CALCIUM 9.5 MG/DL (8.5-10.1); CARBON DIOXIDE 25 MMOL/L (21-32); CHLORIDE 105 MMOL/L (98-107); CREATININE SERUM 0.79 MG/DL (0.60-1.30); GFR ESTIMATED > 60; GLUCOSE 116 MG/DL (70-105); POTASSIUM 3.4 MMOL/L (3.6-5.0); SODIUM 140 MMOL/L (135-145); TOTAL PROTEIN 8.8 GM/DL (6.4-8.2)
[2019-05-23 08:31] LABS: INR 1.6 (0.8-1.4); PROTHROMBIN TIME PATIENT 20.1 SEC (12.2-14.7)
--- NOTE | 2019-05-23 09:15 | Cardiac Procedure Note-CS/ASA ---
Pre-Procedure Note Pre-Op Procedure Note H&P Reviewed The H&P was reviewed, patient examined and no changes noted. Date H&P Reviewed: May 23, 2019 Time H&P Reviewed: 09:00 Conscious Sedation Pre-Proced Time 09:00 ASA Score 3 For ASA 3 and 4: Consider anesthesia and medical clearance. Also, for patients with a history of failed moderate sedation consider anesthesia. Airway Lungs Heart ASA score ASA 1: a normal healthy patient ASA 2: a patient with a mild systemic disease (mid diabetes, controlled hypertension, obesity x ASA 3: a patient with a severe systemic disease that limits activity (angina, COPD, prior Myocardial infarction) ASA 4: a patient with an incapacitating disease that is a constant threat to life (CHF, renal failure) ASA 5: a moribund patient not expected to survive 24 hrs. (ruptured aneurysm) ASA 6: a declared brain- patient whose organs are being harvested. For emergent operations, add the letter E after the classification Mallampati Classification Grade 3 Sedation Plan Analgesia, Amnesia, Plan communicated to team members, Discussed options with patient/fam, Discussed risks with patient/fam The patient is an appropriate candidate to undergo the planned procedure, sedation, and anesthesia. The patient immediately re-assessed prior to indication. CASS BENZ MD May 23, 2019 09:15
--- NOTE | 2019-05-23 09:17 | Cardioversion ---
Cardioversion PROCEDURE PHYSICIAN: Cass Corado DATE OF PROCEDURE: 05/23/19 DIRECT EXTERNAL ELECTRICAL CARDIOVERSION: Indications: Atrial Fibrillation with rapid ventricular rate Preoperative diagnoses: Atrial Fibrillation with rapid ventricular rate Postoperative diagnosis: Sinus rhythm, Successful Electrical Cardioversion History: 84-year-old lady with history of paroxysmal atrial fibrillation becoming persistent atrial fibrillation, hypertension, hyperlipidemia and coronary artery disease, has been maintained on Xarelto. Scheduled for NELL and electrical cardioversion, NELL was done showing dilated left atrium or left atrial appendage with no clot or thrombus, proceeded with electrical cardioversion. Anesthesia: By Anesthesia services Complications: None Specimen: None Contrast: 0 Flouroscopy: none Procedure Details: The patient was brought the lab assistant after informed consent was taken, all the risks and complications were explained including the risk of stroke. Electrical cardioversion was carried out with anesthesia support with propofol. 150 J was not successful in terminating atrial fibrillation, another attempt with 200 joules of synchronized shock was delivered through external patches which promptly restored sinus rhythm. The patient tolerated the procedure well. Conclusions: Successful electrical cardioversion Final Diagnosis: persistent atrial fibrillation Coronary artery disease Hypertension Hyperlipidemia CASS CORADO MD May 23, 2019 09:16
--- NOTE | 2019-05-23 09:27 | Anesthesia-Procedure Note ---
Procedures/Interventions Procedure Start/Stop/Diagnosis Date of Procedure: May 23, 2019 Start Time: 09:00 Stop Time: 09:15 NELL/Cardioversion Anesthesia Type: mac ASA Class: 3 Medications propofol 80 mg IV Monitors and Equipment: Continuous EKG, End Tidal CO2, IV, Pulse Oximeter, V Lead EKG NADEGE GARCIA CRNA May 23, 2019 09:27
--- NOTE | 2019-05-23 09:29 | Diagnostic Imaging Report ---
INDICATION: Preop for transesophageal echocardiogram. TIME OF EXAM: 8:21 AM Correlation is made with prior chest from 02/14/2019. FINDINGS: The heart is enlarged, but stable. The lungs are clear. No infiltrate or failure is seen. No effusion or pneumothorax is detected. IMPRESSION: Cardiomegaly. Dictated by: Dictated on workstation # [id number]
--- NOTE | 2019-05-23 09:50 | Anesthesia-General Post-Op ---
MAC Patient Condition Mental Status/LOC: Same as Preop Cardiovascular: Satisfactory Nausea/Vomiting: Absent Respiratory: Satisfactory Pain: Controlled Complications: Absent Post Op Complications Complications None Follow Up Care/Instructions Patient Instructions None needed. Anesthesiology Discharge Order Discharge Order Patient is doing well, no complaints, stable vital signs, no apparent adverse anesthesia problems. No complications reported per nursing. NADEGE GARCIA CRNA May 23, 2019 09:50
== END | disposition home or self-care (01) ==
LOC: CATH 07:13
PROVIDERS: ATTEND Physician Assistant
DX: I48.0 Paroxysmal atrial fibrillation (principal); I10 Essential (primary) hypertension; I25.10 Atherosclerotic heart disease of native coronary artery without angina pectoris; E78.5 Hyperlipidemia, unspecified; R00.2 Palpitations; G47.10 Hypersomnia, unspecified; G47.50 Parasomnia, unspecified; I27.20 Pulmonary hypertension, unspecified; I08.3 Combined rheumatic disorders of mitral, aortic and tricuspid valves; G47.33 Obstructive sleep apnea (adult) (pediatric); R53.83 Other fatigue; I65.23 Occlusion and stenosis of bilateral carotid arteries; M54.9 Dorsalgia, unspecified; Z88.2 Allergy status to sulfonamides; Z79.899 Other long term (current) drug therapy; Z79.82 Long term (current) use of aspirin
CPT/HCPCS: 36415; 71045; 80053; 85027; 85610; 85730; 87081; 92960; 93005; 93312; 93320; 93325

== ENCOUNTER → 2022-04-29 | Outpatient (CLI) | payer MEDICARE ==
[~2022-04-29] MED LIST changes: -AMIO200T4 PO; +AMIO200T65 PO; -AMIODARONE 200 MG (CORDARONE) TAB PO SCH; -AMIODARONE FOR BOLUS 150 MG in D5W 100 ML IVPB 100 ML IV ONE; +ASPI-1238 PO; -ASPI-983 PO; +DILT120C88 PO; -DILT120C94 PO; +FLUT15.845 NS; -FLUT15.88 NS; -LIDOCAINE 2% VISCOUS 15 ML UDC ONE; -LIDOCAINE 2% VISCOUS 15 ML UDC PO ONE; -LISI10TA2 PO; +LISI10TA25 PO; -METO-395 PO; -MIDAZOLAM 5 MG/5 ML (VERSED) VIAL ONE; +MONT-40 PO; -MONT10TA24 PO; +MTP100TCR PO; -NS IV 1000 ML 1,000 ML IV SCH; -NS IV 1000 ML 1,000 ML ONE; -proPOfol 200 MG/20 ML (DIPRIVAN) VIAL IV ONE
--- NOTE | 2022-04-29 14:57 | Diagnostic Imaging Report ---
INDICATION: Fall and left rib pain. TIME OF EXAM: 02:41 p.m. FINDINGS: There appear to be fractures involving left seventh rib, minimally displaced. There may be a fracture of left sixth rib as well. No other fractures are seen. There is some atelectasis or scarring in the left base. No pneumothorax or hemothorax is seen. IMPRESSION: Findings suggestive of fractures involving left sixth and seventh ribs. Dictated by: Dictated on workstation # [id number]
--- NOTE | 2022-04-29 14:59 | Diagnostic Imaging Report ---
INDICATION: 87-year-old female, post recent fall with left rib pain. TECHNIQUE: Two-view chest, 2:38 p.m. CORRELATION STUDY: 05/23/2019. FINDINGS: Heart size is enlarged. There is torturous course of the thoracic aorta. Vascularity is slightly increased. Bibasilar areas of atelectasis or infiltrate are present. Suspect small effusions. No appreciable pneumothorax. There is suggestion of slight deformity about the mid inferolateral left chest wall, which appears a change from prior. Suspect for potential left lateral rib fracture, particularly at the left eighth rib. IMPRESSION: 1. Bibasilar areas of atelectasis or infiltrate have developed. Question trace left pleural effusion. No pneumothorax. 2. There has been change in the appearance of the left lateral chest wall. Given history and overall findings, it does suggest potential for left-sided mildly displaced rib fractures. Dictated by: Dictated on workstation # [id number]
== END ==
LOC: RAD 14:17
PROVIDERS: ATTEND Nurse Practitioner Family
DX: R07.81 Pleurodynia (principal); R06.00 Dyspnea, unspecified; W19.XXXA Unspecified fall, initial encounter
CPT/HCPCS: 71046; 71100

== ENCOUNTER → 2022-05-12 | Outpatient (CLI) | payer MEDICARE ==
--- NOTE | 2022-05-12 15:33 | Diagnostic Imaging Report ---
INDICATION: Rib fractures, followup. TIME OF EXAM: 2:23 PM. COMPARISON: Correlation is made with the prior chest of 04/29/2022. FINDINGS: The heart size is stable. The ribs appear to be stable in appearance. There has been improved aeration to the lung bases. No effusion is seen. There is no pneumothorax. IMPRESSION: Overall improved aeration at the lung bases when compared to the examination from 04/29/2022. Dictated by: Dictated on workstation # [id number]
== END ==
LOC: RAD 14:05
PROVIDERS: ATTEND Nurse Practitioner Family
DX: S22.39XA Fracture of one rib, unspecified side, initial encounter for closed fracture (principal); J98.11 Atelectasis; X58.XXXA Exposure to other specified factors, initial encounter
CPT/HCPCS: 71046

== ENCOUNTER → 2022-07-22 | Outpatient (CLI) | payer MEDICARE ==
[2022-07-22 11:05] LABS: ABSOLUTE RETIC # 61 10e9/uL (24-90); BASOPHILS # (AUTO) 0.1 10^3/uL (0.0-0.1); BASOPHILS % (AUTO) 1 % (0-10); EOSINOPHILS # (AUTO) 0.2 10^3/uL (0.0-0.3); EOSINOPHILS % (AUTO) 4 % (0-10); HEMATOCRIT 36 % (35-52); LYMPHOCYTES # (AUTO) 1.8 10^3/uL (1.0-4.0); LYMPHOCYTES % (AUTO) 37 % (12-44); MEAN CORPUSCULAR HEMOGLOBIN 32 pg (25-34); MEAN CORPUSCULAR HGB CONC 34 g/dL (32-36); MEAN CORPUSCULAR VOLUME 94 fL (80-99); MEAN PLATELET VOLUME 9.8 fL (9.0-12.2); MONOCYTES # (AUTO) 0.8 10^3/uL (0.0-1.0); MONOCYTES % (AUTO) 16 % (0-12); NEUTROPHILS # (AUTO) 2.1 10^3/uL (1.8-7.8); NEUTROPHILS % (AUTO) 42 % (42-75); PLATELET COUNT 281 10^3/uL (130-400); RETICULOCYTE % 1.61 % (0.50-2.40); WHITE BLOOD COUNT 4.9 10^3/uL (4.3-11.0)
[2022-07-22 11:29] LABS: BASOPHILS % (MANUAL) 1 %; EOSINOPHILS % (MANUAL) 6 %; LYMPHOCYTES % (MANUAL) 41 %; MONOCYTES % (MANUAL) 12 %; NEUTROPHILS % (MANUAL) 40 %
[2022-07-22 11:31] LABS: ELLIPT/OVALOCYTES SLIGHT
== END ==
LOC: LAB 10:38
PROVIDERS: ATTEND Internal Medicine
DX: R71.0 Precipitous drop in hematocrit (principal)
CPT/HCPCS: 36415; 85007; 85027; 85045; 85055

== ENCOUNTER → 2022-08-10 | Outpatient (CLI) | payer MEDICARE ==
--- NOTE | 2022-08-10 16:14 | Diagnostic Imaging Report ---
INDICATION: 87-year-old asymptomatic postmenopausal female COMPARISON: 06/06/2002 FINDINGS: AP Spine L1-L4: [BMD (g/cm2): 0.742] [T-Score: -3.8] [Z-Score: -1.9] [BMD Previous: 0.732] [BMD % Change: 1.4] LT Hip Neck: [BMD (g/cm2): 0.623] [T-Score: -3.0] [Z-Score: -0.6] LT Hip Total: [BMD (g/cm2):0.774] [T-Score:-1.9] [Z-Score: 0.5] [BMD Previous: 0.812] [BMD % Change: -4.7] RT Hip Neck: [BMD (g/cm2):0.597] [T-Score:-3.2] [Z-Score:-0.8] RT Hip Total: [BMD (g/cm2):0.693] [T-score:-2.5] [Z-Score:-0.2] [BMD Previous:0.756] [BMD % Change:-8.3] *Indicates significant change from prior examination based on 95% confidence level. World Health Organization criteria for BMD interpretation classify patients as Normal (T-score at or above -1.0), Osteopenic (T-score between -1.0 and -2.5) or Osteoporotic (T-score at or below -2.5). LIMITATIONS AND MODIFICATION: None. FRACTURE RISK (FRAX SCORE): Not applicable IMPRESSION: 1. Osteoporosis. 2. No significant change in bone mineral density since prior examination. 3. See below National Osteoporosis Foundation guidelines on when to potentially initiate pharmacologic therapy. Based on the National Osteoporosis Foundation Guidelines, pharmacologic treatment should be initiated in any of the following, unless clinical conditions suggest otherwise: * Any patient with prior fragility fracture of the hip or vertebrae. A spine fracture indicates 5X risk for subsequent spine fracture and 2X risk for subsequent hip fracture. * Osteoporosis (T-score <-2.5). * Postmenopausal women and men age 50 and older with low bone mass/osteopenia (T-score between -1.0 and -2.5) by DXA and 10-year major osteoporotic fracture greater than 20% or a 10-year probability of hip fracture greater than 3%. These fracture risks are supplied above in the FRAX score, if applicable. * Clinician judgement and/or patient preferences may indicate treatment for people with 10-year fracture probabilities above or below these levels. Dictated by: Dictated on workstation # [id number]
== END ==
LOC: RAD 10:46
PROVIDERS: ATTEND Internal Medicine Rheumatology
DX: M81.0 Age-related osteoporosis without current pathological fracture (principal); Z78.0 Asymptomatic menopausal state
CPT/HCPCS: 77080

== ENCOUNTER 2023-03-07 09:18 | Emergency (ER) | payer MEDICARE ==
[~2023-03-07] VITALS: Ht 157.5 cm; Wt 65.8 kg
--- NOTE | 2023-03-07 10:31 | ED Integumentary General ---
General Chief Complaint: Skin/Wound Problems Stated Complaint: SORE IN GROIN AREA Nursing Triage Note: PT AMBULATE TO ROOM 05 WITHOUT DIFFICULTY WITH C/O SORE TO THE GROIN AREA. PT STATES THAT SHE HAD A SORE LIKE THIS 1-6 YEARS AGO ON HER BUTTOCKS AND WAS GIVEN A MEDICATION BY THE DRUGGIST. PT STATES SHE IS CONCERNED THE SORE IS MONKEY POX AND WOULD LIKE A SALVE TO FIX IT. Source: patient Exam Limitations: no limitations History of Present Illness Date Seen by Provider: March 07, 2023 Time Seen by Provider: 10:25 Initial Comments Patient is an 87-year-old who presents to the emergency room with a chief complaint of concern for skin wounds/lesions/possible monkeypox. Patient noticed an area in her groin on Tuesday. She has been putting triple antibiotic over the area 3 times a day. She became concerned today because she has a wedding to attend this week and did not want to have an infection that was not treated. No fevers, chills, nausea vomiting. No other complaints of illness. Timing/Duration: other (2 or 3 days) Severity: mild Location: genitalia (Left groin) Possible Cause: no cause identified Associated Symptoms: denies symptoms Allergies and Home Medications Allergies Coded Allergies: Sulfa (Sulfonamide Antibiotics) (Verified Allergy, Unknown, 03/03/19) Patient Home Medication List Home Medication List Reviewed: Yes Acetaminophen (Acetaminophen) 500 Mg Tablet, 500 MG PO PRN PRN for PAIN-MILD, (Reported) Entered as Reported by: BOWEN TURNER on 02/14/19 1130 Amiodarone HCl (Amiodarone HCl) 200 Mg Tablet, 200 MG PO UD Prescribed by: CASS BENZ on 05/23/19 1011 Aspirin (Aspirin EC) 81 Mg Tablet.dr, 81 MG PO DAILY, (Reported) Entered as Reported by: BOWEN TURNER on 02/14/19 1130 Calcium Carbonate/Vitamin D3 (Calcium + Vitamin D Tablet) 1 Each Tablet, 1 EACH PO BID, (Reported) Entered as Reported by: EUGENE MCCLAIN on 05/23/19 0956 Diltiazem HCl (Diltiazem 24Hr Cd) 120 Mg Cap.er.24h, 120 MG PO DAILY, (Reported) Entered as Reported by: BOWEN TURNER on 02/14/19 1130 Fluticasone Propionate (Fluticasone Propionate) 15.8 Ml [place].susp, 1 SPRAY NS DAILY, (Reported) Entered as Reported by: BOWEN TURNER on 02/14/19 1130 Lisinopril (Lisinopril) 10 Mg Tablet, 10 MG PO DAILY Prescribed by: CASS BENZ on 05/23/19 1011 Loratadine (Alavert) 10 Mg Tab.rapdis, 10 MG PO DAILY, (Reported) Entered as Reported by: BOWEN TURNER on 02/14/19 1130 Metoprolol Succinate (Metoprolol Succinate) 100 Mg Tab.er.24h, 100 MG PO DAILY, (Reported) Entered as Reported by: BOWEN TURNER on 02/14/19 113 Montelukast Sodium (Montelukast Sodium) 10 Mg Tablet, 10 MG PO DAILY, (Reported) Entered as Reported by: BOWEN TURNER on 02/14/19 113 Potassium Chloride (Klor-Con) 10 Meq Capcr, 10 MEQ PO BID, (Reported) Entered as Reported by: JUVENTINO DODSON on 07/22/08 1338 Rivaroxaban (Xarelto) 20 Mg Tablet, 20 MG PO DAILY, (Reported) Entered as Reported by: BOWEN TURNER on 02/14/19 113 Simvastatin (Zocor) 20 Mg Tab, 10 MG PO DAILY, (Reported) Entered as Reported by: JUVENTNIO DODSON on 07/22/088 Review of Systems Review of Systems Constitutional: see HPI Skin: other (Skin wound groin) Past Nnipnrm-Klljbg-Lvrkpp Hx Patient Social History Tobacco Use?: No Smoking Status: Never a Smoker Smokeless Tobacco Frequency: Never a User Use of E-Cig and/or Vaping dev: No Use of E-Cig and/or Vaping [place]: Never a User Substance use?: No Alcohol Use?: No Pt feels they are or have been: No Past Medical History Surgeries: Yes (EXCISION RIGHT EAR CANAL BASAL CELL CARCINOMA 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) Respiratory: No Currently Using CPAP: No Cardiac: No Hypertension, Palpitations Neurological: No Reproductive Disorders: No Sexually Transmitted Disease: No Genitourinary: No Gastrointestinal: No Musculoskeletal: Yes (ARTHRITIS) Endocrine: No Cancer: Yes Skin What Type of Treatment Did You: Surgical Intervention Integumentary: No Blood Disorders: No Physical Exam Vital Signs Vital Signs - First Documented 03/07/23 09:30 Temp 37.1 Pulse 79 Resp 16 B/P (MAP) 129/65 (86) O2 Delivery Room Air Capillary Refill : Less Than 3 Seconds General Appearance: WD/WN, no apparent distress Respiratory: no respiratory distress, no accessory muscle use Gastrointestinal: non tender, soft Extremities: normal range of motion, normal inspection Neurologic/Psychiatric: alert, normal mood/affect, oriented x 3 Skin: normal color, warm/dry, other (large open comedone to the skin of the left of the mons pubis. No surrounding erythema. minimally tender. No drainage. no bleeding. approximately 1cm diameter.) Procedures/Interventions I&D : Progress Needle point forceps used to grasp the contents of the comedone and remove it in in its entiriety. Noted to have partial sebaceous cyst wall at the base - this, too was removed. Progress/Results/Core Measures Results/Orders Vital Signs/I&O 03/07/23 09:30 Temp 37.1 Pulse 79 Resp 16 B/P (MAP) 129/65 (86) O2 Delivery Room Air Blood Pressure Mean: 86 Departure Impression Primary Impression: Open comedone Disposition: 01 HOME, SELF-CARE Condition: Stable Departure-Patient Inst. Decision time for Depature: 10:43 Referrals: CLIVE DUBON MD (PCP/Family) Primary Care Physician Patient Instructions: Wound Care (DC) Add. Discharge Instructions: Keep the packing in place for the next couple of days. If it falls out it can be replaced. It may need to be packed for 5-6 days to help healing. You may wash the area with a mild soap and water. You will need to call Dr Dubon's office on Tuesday for a follow up appointment this week. If the area is sore, you can take tylenol. Monitor the area for increased tenderness, redness, drainage. If any of these develop, return to the ER for re-evaluation or follow up with Dr Dubon. Images Female/Male 1 - Other-See Progress Note Copy Copies To 1: CLIVE DUBON MD, KATHRYN M MD March 07, 2023 10:31
[2023-03-07 11:08] VITALS: BP 131/62
== END 2023-03-07 11:06 | disposition home or self-care (01) ==
LOC: EDUNIT# 09:18 → ER 09:20
DX: L70.0 Acne vulgaris (principal)
CPT/HCPCS: 99281

== ENCOUNTER 2023-08-04 20:31 | Observation (INO) | payer MEDICARE ==
[~2023-08-04] VITALS: Ht 157.5 cm; Wt 68.9 kg
[2023-08-04 20:58] LABS: BASOPHILS # (AUTO) 0.1 10^3/uL (0.0-0.1); BASOPHILS % (AUTO) 1 % (0-10); EOSINOPHILS # (AUTO) 0.3 10^3/uL (0.0-0.3); EOSINOPHILS % (AUTO) 4 % (0-10); HEMATOCRIT 40 % (35-52); HEMOGLOBIN 13.4 g/dL (11.5-16.0); LYMPHOCYTES # (AUTO) 3.3 10^3/uL (1.0-4.0); LYMPHOCYTES % (AUTO) 42 % (12-44); MEAN CORPUSCULAR HEMOGLOBIN 31 pg (25-34); MEAN CORPUSCULAR HGB CONC 34 g/dL (32-36); MEAN CORPUSCULAR VOLUME 91 fL (80-99); MEAN PLATELET VOLUME 10.1 fL (9.0-12.2); MONOCYTES # (AUTO) 0.9 10^3/uL (0.0-1.0); MONOCYTES % (AUTO) 12 % (0-12); NEUTROPHILS # (AUTO) 3.2 10^3/uL (1.8-7.8); NEUTROPHILS % (AUTO) 41 % (42-75); PLATELET COUNT 309 10^3/uL (130-400); WHITE BLOOD COUNT 7.8 10^3/uL (4.3-11.0)
[2023-08-04 21:06] LABS: PROTHROMBIN TIME PATIENT 13.9 SEC (12.2-14.7)
[2023-08-04] MEDS ORDERED: NS IV 500 ML 500 ML IV STA (21:08)
[2023-08-04 21:15] LABS: ALANINE AMINOTRANSFERASE 14 U/L (0-55); ALBUMIN 4.1 GM/DL (3.2-4.5); ALKALINE PHOSPHATASE 70 U/L (40-136); BILIRUBIN,TOTAL 0.2 MG/DL (0.1-1.0); BUN/CREATININE RATIO 15; CALCIUM 10.2 MG/DL (8.5-10.1); CARBON DIOXIDE 22 MMOL/L (21-32); CHLORIDE 104 MMOL/L (98-107); CREATININE SERUM 1.15 MG/DL (0.60-1.30); GFR ESTIMATED 46; GLUCOSE 109 MG/DL (70-105); SODIUM 136 MMOL/L (135-145); TOTAL PROTEIN 8.4 GM/DL (6.4-8.2)
--- NOTE | 2023-08-04 21:26 | Diagnostic Imaging Report ---
INDICATION: Chest pain. COMPARISON: 05/23/2019. FINDINGS: The heart size and pulmonary vascularity are within normal limits. The lungs are clear bilaterally. 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 IMPRESSION: Unremarkable chest. Dictated by: Dictated on workstation # [id number]
--- NOTE | 2023-08-04 21:30 | ED General ---
General Chief Complaint: Cardiac/General Problems Stated Complaint: ABNORMAL HEART RATE, AFIB Nursing Triage Note: PT TO RM 7 W C/O FEELING OF HEART RACING THAT BEGAN AROUND 1830 THIS PM WHILE SITTING AT HOME. PT DENIES N/V AND SOA, DENIES PAIN, REPORTS HX OF AFIB. Source of Information: Patient, Family Exam Limitations: No Limitations (BEATRICE LE) History of Present Illness Date Seen by Provider: Aug 04, 2023 Time Seen by Provider: 20:45 Initial Comments 88 yo female with pmh of AFIB, HTN presents with concerns that AFIB is returning. Pt started feeling heart racing tonight at 1830 after dinner and states that is "feels like it did when in AFIB". Pt is currently on tykosin and xarelto and is being followed with industrial machine operator at [facility]. Takes tykosin BID and has not had night dose yet today. Pt has appointment with industrial machine operator on 08/11. Denies fever, dizziness, chest pain, SOA, n/v/d, abdominal pain, constipation, dysuria. Pt notes her mouth is dry and does have history of sjogren's disease. (BEATRICE LE) Allergies and Home Medications Allergies Coded Allergies: Sulfa (Sulfonamide Antibiotics) (Verified Allergy, Unknown, 03/03/19) Patient Home Medication List Home Medication List Reviewed: Yes (KB GODWIN MD) Acetaminophen (Acetaminophen) 500 Mg Tablet, 500 MG PO PRN PRN for PAIN-MILD, (Reported) Entered as Reported by: BOWEN TURNER on 02/14/19 1130 Amiodarone HCl (Amiodarone HCl) 200 Mg Tablet, 200 MG PO UD Prescribed by: CASS BENZ on 05/23/19 1011 Aspirin (Aspirin EC) 81 Mg Tablet.dr, 81 MG PO DAILY, (Reported) Entered as Reported by: BOWEN TURNER on 02/14/19 1130 Calcium Carbonate/Vitamin D3 (Calcium + Vitamin D Tablet) 1 Each Tablet, 1 EACH PO BID, (Reported) Entered as Reported by: EUGENE MCCLAIN on 05/23/19 0956 Diltiazem HCl (Diltiazem 24Hr Cd) 120 Mg Cap.er.24h, 120 MG PO DAILY, (Reported) Entered as Reported by: BOWEN TURNER on 02/14/19 1130 Fluticasone Propionate (Fluticasone Propionate) 15.8 Ml [place].susp, 1 SPRAY NS DAILY, (Reported) Entered as Reported by: BOWEN TURNER on 02/14/19 113 Lisinopril (Lisinopril) 10 Mg Tablet, 10 MG PO DAILY Prescribed by: CASS BENZ on 05/23/19 1011 Loratadine (Alavert) 10 Mg Tab.rapdis, 10 MG PO DAILY, (Reported) Entered as Reported by: BOWEN TURNER on 02/14/19 113 Metoprolol Succinate (Metoprolol Succinate) 100 Mg Tab.er.24h, 100 MG PO DAILY, (Reported) Entered as Reported by: BOWEN TURNER on 02/14/19 113 Montelukast Sodium (Montelukast Sodium) 10 Mg Tablet, 10 MG PO DAILY, (Reported) Entered as Reported by: BOWEN TURNER on 02/14/19 113 Potassium Chloride (Klor-Con) 10 Meq Capcr, 10 MEQ PO BID, (Reported) Entered as Reported by: JUVENTINO DODSON on 07/22/08 1338 Rivaroxaban (Xarelto) 20 Mg Tablet, 20 MG PO DAILY, (Reported) Entered as Reported by: BOWEN TURNER on 02/14/19 113 Simvastatin (Zocor) 20 Mg Tab, 10 MG PO DAILY, (Reported) Entered as Reported by: JUVENTINO DODSON on 07/22/08 1338 Review of Systems Review of Systems Constitutional: see HPI EENTM: see HPI Respiratory: see HPI Cardiovascular: see HPI Gastrointestinal: see HPI Genitourinary: see HPI Musculoskeletal: see HPI Skin: see HPI Psychiatric/Neurological: See HPI Hematologic/Lymphatic: See HPI (BEATRICE LE) Past Lhdzsiv-Lgeaan-Yjuslm Hx Patient Social History Tobacco Use?: No Use of E-Cig and/or Vaping dev: No Substance use?: No Alcohol Use?: No (BEATRICE LE) Immunizations Up To Date Influenza Vaccine Up-to-Date: Yes; Up-to-Date (BEATRICE LE) Past Medical History Surgery/Hospitalization HX: AFIB Surgeries: Yes (EXCISION RIGHT EAR CANAL BASAL CELL CARCINOMA WITH FS) Respiratory: No Currently Using CPAP: No Cardiac: No Hypertension, Palpitations Neurological: No Reproductive Disorders: No Sexually Transmitted Disease: No Genitourinary: No Gastrointestinal: No Musculoskeletal: Yes (ARTHRITIS) Endocrine: No Cancer: Yes Skin What Type of Treatment Did You: Surgical Intervention Integumentary: No Blood Disorders: No (BEATRICE LE) Physical Exam Vital Signs Vital Signs - First Documented 08/04/23 20:38 Temp 36.8 Pulse 125 Resp 18 B/P (MAP) 149/107 (121) Pulse Ox 94 O2 Delivery Room Air (KB GODWIN MD) Vital Signs Capillary Refill : Less Than 3 Seconds (BEATRICE LE) Height, Weight, BMI Height: 5'2.00" Weight: 132lbs. 0.0oz. 59.421953ji; 27.00 BMI Method:Stated General Appearance: No Apparent Distress, WD/WN, Other (Uncomfortable) HEENT: PERRL/EOMI, Pharynx Normal, Other (oral mucosa dry) Neck: Full Range of Motion, Normal Inspection (no lesions, erythema, or bruising.), Non Tender, Supple Respiratory: Chest Non Tender, Lungs Clear, Normal Breath Sounds (CTAB w/o adventitious sounds), No Accessory Muscle Use, No Respiratory Distress Cardiovascular: No Edema (no pitting edema of LE b/l), Normal Peripheral Pulses (radialis and posterior tibialis pulses 2+ b/l), Irregularly Irregular Gastrointestinal: Normal Bowel Sounds, No Organomegaly, No Pulsatile Mass, Non Tender, Soft Extremity: Normal Capillary Refill, Non Tender (UE and LE b/l), No Calf Tenderness (b/l), No Pedal Edema Neurologic/Psychiatric: Alert, Oriented x3, No Motor/Sensory Deficits, Normal Mood/Affect Skin: Normal Color, Warm/Dry (BEATRICE LE) General Appearance: Obese Cardiovascular: Tachycardia (KB GODWIN MD) Progress/Results/Core Measures Suspected Sepsis SIRS Temperature: Pulse: 125 Respiratory Rate: 18 Laboratory Tests 08/04/23 20:42: White Blood Count 7.8 Blood Pressure 149 /107 Mean: 121 Laboratory Tests 08/04/23 20:42: Creatinine 1.15, INR Comment 1.0, Platelet Count 309, Total Bilirubin 0.2 (BEATRICE LE) Results/Orders Lab Results Laboratory Tests Test 08/04/23 20:42 Range/Units White Blood Count 7.8 4.3-11.0 10^3/uL Red Blood Count 4.40 3.80-5.11 10^6/uL Hemoglobin 13.4 11.5-16.0 g/dL Hematocrit 40 35-52 % Mean Corpuscular Volume 91 80-99 fL Mean Corpuscular Hemoglobin 31 25-34 pg Mean Corpuscular Hemoglobin Concent 34 32-36 g/dL Red Cell Distribution Width 13.4 10.0-14.5 % Platelet Count 309 130-400 10^3/uL Mean Platelet Volume 10.1 9.0-12.2 fL Immature Granulocyte % (Auto) 0 % Neutrophils (%) (Auto) 41 L 42-75 % Lymphocytes (%) (Auto) 42 12-44 % Monocytes (%) (Auto) 12 0-12 % Eosinophils (%) (Auto) 4 0-10 % Basophils (%) (Auto) 1 0-10 % Neutrophils # (Auto) 3.2 1.8-7.8 10^3/uL Lymphocytes # (Auto) 3.3 1.0-4.0 10^3/uL Monocytes # (Auto) 0.9 0.0-1.0 10^3/uL Eosinophils # (Auto) 0.3 0.0-0.3 10^3/uL Basophils # (Auto) 0.1 0.0-0.1 10^3/uL Immature Granulocyte # (Auto) 0.0 0.0-0.1 10^3/uL Prothrombin Time 13.9 12.2-14.7 SEC INR Comment 1.0 0.8-1.4 Activated Partial Thromboplast Time 30 24-35 SEC Sodium Level 136 135-145 MMOL/L Potassium Level 4.0 3.6-5.0 MMOL/L Chloride Level 104 98-107 MMOL/L Carbon Dioxide Level 22 21-32 MMOL/L Anion Gap 10 5-14 MMOL/L Blood Urea Nitrogen 17 7-18 MG/DL Creatinine 1.15 0.60-1.30 MG/DL Estimat Glomerular Filtration Rate 46 BUN/Creatinine Ratio 15 Glucose Level 109 H 70-105 MG/DL Calcium Level 10.2 H 8.5-10.1 MG/DL Corrected Calcium 10.1 8.5-10.1 MG/DL Magnesium Level 2.0 1.6-2.4 MG/DL Total Bilirubin 0.2 0.1-1.0 MG/DL Aspartate Amino Transf (AST/SGOT) 20 5-34 U/L Alanine Aminotransferase (ALT/SGPT) 14 0-55 U/L Alkaline Phosphatase 70 40-136 U/L Troponin I < 0.028 <0.028 NG/ML Total Protein 8.4 H 6.4-8.2 GM/DL Albumin 4.1 3.2-4.5 GM/DL (KB GODWIN MD) My Orders Orders - KB GODWIN MD Ekg Tracing (08/04/23 20:39) Cbc And Automated Diff (08/04/23 20:54) Magnesium (08/04/23 20:54) Chest 1 View, Ap/Pa Only (08/04/23 20:54) Comprehensive Metabolic Panel (08/04/23 20:54) Protime With Inr (08/04/23 20:54) Partial Thromboplastin Time (08/04/23 20:54) O2 (08/04/23 20:54) Monitor-Rhythm Ecg Trace Only (08/04/23 20:54) Lipid Panel (08/05/23 06:00) Ed Iv/Invasive Line Start (08/04/23 20:54) Troponin I Kushal (08/04/23 20:54) Ns Iv 500 Ml (Ns Iv 500 Ml) (08/04/23 21:08) Diltiazem Injection (Diltiazem Injection (08/04/23 23:00) Diltiazem Drip Pre-Mix (Diltiazem Drip P (08/04/23 23:00) (KB GODWIN MD) Vital Signs/I&O 08/04/23 20:38 Temp 36.8 Pulse 125 Resp 18 B/P (MAP) 149/107 (121) Pulse Ox 94 O2 Delivery Room Air (KB GODWIN MD) Vital Signs/I&O Capillary Refill : Less Than 3 Seconds (BEATRICE LE) Blood Pressure Mean: 121 Progress Note : Time: 23:02 Progress Note I have reviewed the medical student's documentation and agree. My findings and plan of care as follows: Patient seen and evaluated by me, evaluation today includes "chest pain protocol" to include CBC, Chem-12, magnesium, troponin level, coagulation profile, single view chest x-ray, EKG. Pertinent physical exam findings well-developed well-nourished 88-year-old female in no acute distress. Pleasant, conversant/alert and oriented. Complaining of chest discomfort related to palpitations. Heart is tacky, irregularly irregular consistent with atrial fibrillation. Lungs are clear bilaterally. Abdomen is soft and benign. No significant lower extremity edema. She differential diagnosis includes A-fib RVR, electrolyte abnormality, dehydration Patient's labs, EKG and chest x-ray independently reviewed and interpreted by me. Her CBC is completely normal. Her Chem-12 is unremarkable. Magnesium is within normal limits, troponin is undetectable. Coags are also within normal limits. Her EKG is reflective of atrial fibrillation with rapid ventricular response. Chest x-ray shows no focal infiltrate or other significant abnormality. Patient had not taken her dose of Tikosyn this evening prior to arrival as the patient's daughter thought that if she was in A-fib she probably should not take it. I discussed the case with Dr. Mickie heredia for cardiology and whom the patient has seen in the past. He instructed to go ahead and give her the Tikosyn and monitor her. He provided several options, monitor and if she converts she can go home, admit her and if she converts she can go home in the m or[place] or if she does not he can electrically cardiovert her. I went ahead and gave her the Tikosyn and we watched her for about an hour. She did have a few seconds of what appeared to be a sinus bradycardia on telemetry but bounced right back up into A-fib in the 120s. Show I spoke with Dr. Redding on for the hospitalist service, her preference is not cardiac stepdown but ICU and would like me to go ahead and place her on a Cardizem drip. Her current heart rate is 108 blood pressure 125/82. She is 94% on room air. She continues to be without chest pain, nausea, shortness of breath. She is comfortable with admission as is the family at the bedside. No concerning findings for infection, does not really appear clinically dehydrated or dehydrated on laboratory studies. Orders have been written to continue her Tikosyn and her Xarelto as well as for the Cardizem drip. I will discuss with eICU as well (BK GODWIN MD) ECG Initial ECG Impression Date: Aug 04, 2023 Initial ECG Impression Time: 20:43 Initial ECG Rate: 118 Initial ECG Rhythm: A Fib/Flutter Initial ECG Impression: Atrial Fibrillation w/RVR (KB GODWIN MD) Diagnostic Imaging Diagonstic Imaging: Xray Plain Films/CT/US/NM/MRI: chest Comments [facility], [place] NAME: GAVI ROBB [facility] REC#: [id number] PT STATUS: REG ER : 1935 PHYSICIAN: KB GODWIN MD ADMIT DATE: 08/04/23/ER Signed Date of Exam:08/04/23 CHEST 1 VIEW, AP/PA ONLY INDICATION: Chest pain. COMPARISON: 05/23/2019. FINDINGS: The heart size and pulmonary vascularity are within normal limits. The lungs are clear bilaterally. 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 IMPRESSION: Unremarkable chest. Dictated by: Dictated on workstation # [id number] Dict: 08/04/232116 Trans: 08/04/232204 [id number] Interpreted by: MILAN STARK MD Electronically signed by: MILAN STARK MD 08/04/232204 (KB GODWIN MD) Departure Communication (Admissions) Time/Spoke to Admitting Phy: 22:[address] [facility] Time/Spoke to Consulting Phy: 21:[address] Mickie kelley; will cardiovert in am if doesnt convert discussed with eICU @2308 (KB GODWIN MD) Impression Primary Impression: Atrial fibrillation with rapid ventricular response Disposition: ADMITTED INPATIENT Condition: Stable Admissions Decision to Admit Reason: Admit from ER (General) Decision to Admit/Date: Aug 04, 2023 Time/Decision to Admit Time: 22:51 (KB GODWIN MD) Departure-Patient Inst. Referrals: CLIVE DUBON MD (PCP/Family) Primary Care Physician Verification and Attestation of Medical Student E/M Service A medical student performed and documented this service in my presence. I reviewed and verified all information documented by the medical student and made modifications to such information, when appropriate. I personally performed the physical exam and medical decision making. Kb Godwin, Aug 04, 2023,22:58 (KB GODWIN MD) Copy Copies To 1: CLIVE DUBON MD Copies To 2: CASS BENZ MD, ETHAN Aug 04, 2023 21:30 KB GODWIN MD Aug 04, 2023 22:55
[2023-08-04] MEDS ORDERED: dilTIAZem DRIP PRE-MIX 125 ML IV SCH (23:00)
[2023-08-04] MEDS ORDERED: dilTIAZem INJ 25 MG/5 ML VIAL IVP ONE (23:00)
[2023-08-05 00:37] VITALS: BP 107/54
--- NOTE | 2023-08-05 01:11 | Tele-ICU Progress Note ---
Progress Note Tele ICU 88 yo woman presented to ED with sensation of afib/palpitations. Followed by billboard erector on antiarrhythmics Tikosyn and Xarelto - in ED was initiated on cardizem drip for a fib with a ventricular response in the 120s. She was also given her dose of Tikosyn. No other complaints were eleicited, Labs Na 136 K 4.0 Cl 104 Bicarb 22 BUN 17 Cr 1.15 Ca 10.2 CBC Wbcs 7800 Hgb 13.4 Plts 309,000 P41 L42 Monocytes 12 Eos 4 Baso 1 Trop <0.028 INR 1.0 EKG in ED: atrial fibrillation with RVR , nl axis, anterolateral ST dpression, Per video- pt appears to be resting comfortably potline monitor showing sinus rate 61 with periods of Wenkeback and bradycardia into 40s. BP 115/61 The cardizem was then stopped - cardiology notified. the patient subsequently is in sinus on the monitor with sinus arrhythmia rate 66-low 70s- no further block identified at this time. A/P- Atrial fibrillation- - converted- now sinus arrhythmia-- D/W nursing. Cardiology is managing this patient and is being kept notified of status. Focused Exam Height, Weight, BMI Height: 5'2.00" Weight: 132lbs. 0.0oz. 59.610295qc; 27.77 BMI Method:Stated MARINE KAISER DO Aug 05, 2023 01:11
[2023-08-05] MEDS ORDERED: MELATONIN 3 MG TABLET PO PRN (01:15)
[2023-08-05] MEDS ORDERED: ACETAMINOPHEN 325 MG TABLET PO PRN (01:15)
[2023-08-05] MEDS ORDERED: NS IV 500 ML 500 ML IV SCH (01:15)
[2023-08-05] MEDS ORDERED: dilTIAZem DRIP 125 MG/125 ML DRIP IV SCH (01:15)
[2023-08-05 01:29] VITALS: BP 107/54
[2023-08-05 05:08] LABS: BASOPHILS # (AUTO) 0.1 10^3/uL (0.0-0.1); BASOPHILS % (AUTO) 1 % (0-10); EOSINOPHILS # (AUTO) 0.2 10^3/uL (0.0-0.3); EOSINOPHILS % (AUTO) 3 % (0-10); HEMATOCRIT 37 % (35-52); HEMOGLOBIN 12.5 g/dL (11.5-16.0); LYMPHOCYTES # (AUTO) 2.8 10^3/uL (1.0-4.0); LYMPHOCYTES % (AUTO) 41 % (12-44); MEAN CORPUSCULAR HEMOGLOBIN 31 pg (25-34); MEAN CORPUSCULAR HGB CONC 34 g/dL (32-36); MEAN CORPUSCULAR VOLUME 91 fL (80-99); MEAN PLATELET VOLUME 10.2 fL (9.0-12.2); MONOCYTES # (AUTO) 0.8 10^3/uL (0.0-1.0); MONOCYTES % (AUTO) 11 % (0-12); NEUTROPHILS # (AUTO) 3.1 10^3/uL (1.8-7.8); NEUTROPHILS % (AUTO) 44 % (42-75); PLATELET COUNT 249 10^3/uL (130-400)
[2023-08-05 05:29] LABS: ALBUMIN 3.6 GM/DL (3.2-4.5); BILIRUBIN,TOTAL 0.3 MG/DL (0.1-1.0); CALCIUM 9.4 MG/DL (8.5-10.1); CREATININE SERUM 1.06 MG/DL (0.60-1.30); MAGNESIUM 1.8 MG/DL (1.6-2.4); PHOSPHORUS 3.8 MG/DL (2.3-4.7); POTASSIUM 4.3 MMOL/L (3.6-5.0); TOTAL PROTEIN 7.4 GM/DL (6.4-8.2)
[2023-08-05] MEDS ORDERED: MAGNESIUM 1 GM/100 ML IVPB 100 ML IV SCH (06:00)
[2023-08-05] MEDS ORDERED: POTASSIUM CL 10MEQ/50ML IVPB 50 ML IV SCH (06:00)
[2023-08-05] MEDS ORDERED: POTASSIUM CHLORIDE 20 MEQ TABLET PO SCH (06:00)
[2023-08-05] MEDS ORDERED: NS IV 500 ML 500 ML IV PRN (06:00)
[2023-08-05] MEDS: MAGNESIUM 1 GM/100 ML IVPB 100 ML IV SCH ×2 (06:21→06:22)
--- NOTE | 2023-08-05 07:47 | History & Physical ---
MARLIN HAY 08/05/23 0747: History of Present Illness History of Present Illness Reason for visit/HPI 08/05/2023: CC: AFib with RVR HPI: Brittany is a 88 year old female that presented to the ED on 08/04 due to palpitations and rapid heart rate. She has a history of AFIB that is treated with Tikosyn for the past 4 years without issue managed at [facility]. In the ED, Tikosyn and Cardizem were given and she was converted back to sinus rhythm. In the ICU, she notes that she is feeling like her normal self and has not had any heart concerns since last night. She notes that her palpatations have not occurred since she presented to the ED. She denies any chest pain, confusion, or headaches. Her main concern is that her mouth is dry, but notes that she has Sjogrens Syndrome. She believes that once she got her medication she began to f eel better. She also notes that she was not able to sleep, but contributes this to being in the ICU and not being comfortable. She has no other concerns. Date of Admission Aug 04, 2023 at 23:29 Date Seen by a Provider: Aug 05, 2023 Time Seen by a Provider: 08:13 I consulted on this patient on 08/05/23 07:43 Attending Physician Gigi Olivares MD Admitting Physician Admitting Physician: Earline Morales DO Attending Physician: Earline Morales DO Consult Allergies and Home Medications Allergies Coded Allergies: Sulfa (Sulfonamide Antibiotics) (Verified Allergy, Unknown, 03/03/19) Patient Home Medication List Home Medication List Reviewed: Yes Acetaminophen (Acetaminophen) 500 Mg Tablet, 500 MG PO PRN PRN for PAIN-MILD, (Reported) Entered as Reported by: BOWEN TURNER on 02/14/19 1130 Last Action: Reviewed Ascorbic Acid (Vitamin C) 500 Mg Tablet, 600 MG PO DAILY, (Reported) Entered as Reported by: KYE PEREZ on 08/05/23 1124 Last Action: New Order Calcium Carbonate/Vitamin D3 (Calcium + Vitamin D Tablet) 1 Each Tablet, 1 EACH PO BID, (Reported) Entered as Reported by: EUGENE MCCLAIN on 05/23/19 0956 Last Action: Reviewed Dofetilide (Dofetilide) 250 Mcg Capsule, 250 MCG PO BID, (Reported) Entered as Reported by: KYE PEREZ on 08/05/231123 Last Action: New Order Fluticasone Propionate (Fluticasone Propionate) 15.8 Ml [place].susp, 1 SPRAY NS DAILY, (Reported) Entered as Reported by: BOWEN TURNER on 02/14/191129 Last Action: Reviewed Glucosamine Sulfate 2Kcl (Glucosamine) 1,000 Mg Tablet, 1,500 MG PO DAILY, (Reported) Entered as Reported by: KYE PEREZ on 08/05/231123 Last Action: New Order Lisinopril (Lisinopril) 10 Mg Tablet, 10 MG PO DAILY Prescribed by: CASS CORADO on 05/23/19 101 Last Action: Reviewed Loratadine (Alavert) 10 Mg Tab.rapdis, 10 MG PO DAILY, (Reported) Entered as Reported by: BOWEN TURNER on 02/14/191129 Last Action: Reviewed Montelukast Sodium (Montelukast Sodium) 10 Mg Tablet, 10 MG PO DAILY, (Reported) Entered as Reported by: BOWEN TURNER on 02/14/191129 Last Action: Reviewed Potassium Chloride (Klor-Con) 10 Meq Capcr, 10 MEQ PO BID, (Reported) Entered as Reported by: JUVENTINO DODSON on 07/22/08 1338 Rivaroxaban (Xarelto) 20 Mg Tablet, 20 MG PO DAILY, (Reported) Entered as Reported by: BOWEN TURNER on 02/14/191129 Last Action: Reviewed Spironolactone (Aldactone) 25 Mg Tablet, 25 MG PO DAILY, (Reported) Entered as Reported by: KYE PEREZ on 08/05/231123 Last Action: New Order Discontinued Medications Amiodarone HCl (Amiodarone HCl) 200 Mg Tablet, 200 MG PO UD Discontinued Reason: No Longer Taking Prescribed by: CASS CORADO on 05/23/19 101 Last Action: Discontinued Aspirin (Aspirin EC) 81 Mg Tablet.dr, 81 MG PO DAILY, (Reported) Discontinued Reason: No Longer Taking Entered as Reported by: BOWEN TURNER on 02/14/191129 Last Action: Discontinued Diltiazem HCl (Diltiazem 24Hr Cd) 120 Mg Cap.er.24h, 120 MG PO DAILY, (Reported) Discontinued Reason: No Longer Taking Entered as Reported by: BOWEN TURNER on 02/14/19 1130 Last Action: Discontinued Metoprolol Succinate (Metoprolol Succinate) 100 Mg Tab.er.24h, 100 MG PO DAILY, (Reported) Entered as Reported by: BOWEN TURNER on 02/14/19 1130 Last Action: Reviewed Simvastatin (Zocor) 20 Mg Tab, 10 MG PO DAILY, (Reported) Discontinued Reason: No Longer Taking Entered as Reported by: JUVENTINO DODSON on 07/22/08 1338 Last Action: Discontinued Past Irieeuc-Uejepz-Pxllsl Hx Patient Social History Marrital Status: Number of Children: 3 Employed/Student: retired Tobacco Use?: No Use of E-Cig and/or Vaping dev: No Substance use?: No Alcohol Use?: No Pt feels they are or have been: No Immunizations Up To Date Date of Pneumonia Vaccine: Jul 18, 2017 Current Status Advance Directives: Yes Communicates: Verbally Primary Language: Chilean Preferred Spoken Language: Chilean Is interpretation needed?: No Sensory deficits: Vision impairment, Hearing impairment Implanted or Applied Medical D: CPAP Past Medical History Surgeries: Ear Surgery Currently Using CPAP: No Atrial Fibrillation (2019 dx ), Hypertension, Palpitations Sexually Transmitted Disease: No Skin What Type of Treatment Did You: Surgical Intervention Blood Disorders: No Sjogrens Syndrome Review of Systems Constitutional: No dizziness, No weakness EENTM: no symptoms reported Respiratory: no symptoms reported Cardiovascular: No chest pain, No edema, No palpitations, No syncope Gastrointestinal: see HPI Genitourinary: no symptoms reported, other (dry mouth ) Musculoskeletal: no symptoms reported Skin: no symptoms reported Psychiatric/Neurological: No Symptoms Reported Physical Exam Vital Signs Vital Signs - First Documented 08/04/23 08/05/23 08/05/23 20:38 00:00 00:27 Temp 36.8 Pulse 125 Resp 18 B/P (MAP) 149/107 (121) Pulse Ox 94 O2 Delivery Room Air O2 Flow Rate 3.00 FiO2 21 Capillary Refill : Less Than 3 Seconds Height, Weight, BMI Height: 5'2.00" Weight: 132lbs. 0.0oz. 59.322006tt; 27.77 BMI Method:Stated General Appearance: No Apparent Distress, WD/WN Eyes: Bilateral Eye Normal Inspection HEENT: Pharynx Normal; No Pale Conjunctivae (L), No Pale Conjunctivae (R) Neck: Full Range of Motion, Non Tender Respiratory: Chest Non Tender, Lungs Clear, Normal Breath Sounds, No Accessory Muscle Use, No Respiratory Distress Cardiovascular: Regular Rate, Rhythm, No Edema, No Murmur, Normal Peripheral Pulses Gastrointestinal: Normal Bowel Sounds, Non Tender Rectal: Deferred Extremity: Normal Capillary Refill, Normal Inspection, Non Tender, No Calf Tenderness, No Pedal Edema Neurologic/Psychiatric: Alert, Oriented x3, No Motor/Sensory Deficits, Normal Mood/Affect, internal control analyst II-XII Norm as Tested Skin: Normal Color, Warm/Dry Assessment/Plan Assessment and Plan 08/05/2023: A/P -AFib with RVR * converted to sinus * Dr. Corado Consult * IV Magnesium * Tikosyn * Cardizem drip -Stroke Prophylaxis * Xarelto -Sjorgrens Syndrome * NSAIDs * eye drops, PO fluids -Discharge Admission Diagnosis Admission Status: Observation EARLINE MORALES DO 08/05/232053: History of Present Illness History of Present Illness Reason for visit/HPI Chief complaint: A-fib with RVR HPI: This is an 88-year-old female with known history of A-fib who presented to the ER with palpitations. Patient was admitted for A-fib with RVR. Tikosyn maintained. Holding metoprolol. Cardiology appreciated. Allergies and Home Medications Allergies Coded Allergies: Sulfa (Sulfonamide Antibiotics) (Verified Allergy, Unknown, 03/03/19) Patient Home Medication List Acetaminophen (Acetaminophen) 500 Mg Tablet, 500 MG PO PRN PRN for PAIN-MILD, (Reported) Entered as Reported by: BOWEN TURNER on 02/14/19 1130 Last Action: Reviewed Ascorbic Acid (Vitamin C) 500 Mg Tablet, 600 MG PO DAILY, (Reported) Entered as Reported by: KYE PEREZ on 08/05/23 1124 Last Action: New Order Calcium Carbonate/Vitamin D3 (Calcium + Vitamin D Tablet) 1 Each Tablet, 1 EACH PO BID, (Reported) Entered as Reported by: EUGENE MCCLAIN on 05/23/19 0956 Last Action: Reviewed Dofetilide (Dofetilide) 250 Mcg Capsule, 250 MCG PO BID, (Reported) Entered as Reported by: KYE PEREZ on 08/05/231123 Last Action: New Order Fluticasone Propionate (Fluticasone Propionate) 15.8 Ml [place].susp, 1 SPRAY NS DAILY, (Reported) Entered as Reported by: BOWEN TURNER on 02/14/191129 Last Action: Reviewed Glucosamine Sulfate 2Kcl (Glucosamine) 1,000 Mg Tablet, 1,500 MG PO DAILY, (Reported) Entered as Reported by: KYE PEREZ on 08/05/231123 Last Action: New Order Lisinopril (Lisinopril) 10 Mg Tablet, 10 MG PO DAILY Prescribed by: CASS CORADO on 05/23/19 101 Last Action: Reviewed Loratadine (Alavert) 10 Mg Tab.rapdis, 10 MG PO DAILY, (Reported) Entered as Reported by: BOWEN TURNER on 02/14/191129 Last Action: Reviewed Montelukast Sodium (Montelukast Sodium) 10 Mg Tablet, 10 MG PO DAILY, (Reported) Entered as Reported by: BOWEN TURNER on 02/14/191129 Last Action: Reviewed Potassium Chloride (Klor-Con) 10 Meq Capcr, 10 MEQ PO BID, (Reported) Entered as Reported by: JUVENTINO DODSON on 07/22/08 1338 Rivaroxaban (Xarelto) 20 Mg Tablet, 20 MG PO DAILY, (Reported) Entered as Reported by: BOWEN TURNER on 02/14/191129 Last Action: Reviewed Spironolactone (Aldactone) 25 Mg Tablet, 25 MG PO DAILY, (Reported) Entered as Reported by: KYE PEREZ on 08/05/231123 Last Action: New Order Discontinued Medications Amiodarone HCl (Amiodarone HCl) 200 Mg Tablet, 200 MG PO UD Discontinued Reason: No Longer Taking Prescribed by: CASS CORADO on 05/23/19 101 Last Action: Discontinued Aspirin (Aspirin EC) 81 Mg Tablet.dr, 81 MG PO DAILY, (Reported) Discontinued Reason: No Longer Taking Entered as Reported by: BOWEN TURNER on 02/14/191129 Last Action: Discontinued Diltiazem HCl (Diltiazem 24Hr Cd) 120 Mg Cap.er.24h, 120 MG PO DAILY, (Reported) Discontinued Reason: No Longer Taking Entered as Reported by: BOWEN TURNER on 02/14/19 1130 Last Action: Discontinued Metoprolol Succinate (Metoprolol Succinate) 100 Mg Tab.er.24h, 100 MG PO DAILY, (Reported) Entered as Reported by: BOWEN TURNER on 02/14/19 113 Last Action: Reviewed Simvastatin (Zocor) 20 Mg Tab, 10 MG PO DAILY, (Reported) Discontinued Reason: No Longer Taking Entered as Reported by: JUVENTINO DODSON on 07/22/08 1338 Last Action: Discontinued Past Tmfrcxq-Yzvylv-Mirmam Hx Patient Social History Marrital Status: Employed/Student: retired Smoking Status: Never a Smoker Past Medical History Atrial Fibrillation (2019 dx ) Review of Systems Constitutional: see HPI Cardiovascular: palpitations Physical Exam General Appearance: No Apparent Distress, WD/WN, Chronically ill Eyes: Bilateral Eye Normal Inspection, Bilateral Eye PERRL, Bilateral Eye EOMI HEENT: PERRL/EOMI, Normal ENT Inspection, Pharynx Normal Neck: Full Range of Motion, Normal Inspection, Non Tender, Supple, Carotid Bruit Respiratory: Chest Non Tender, Lungs Clear, Normal Breath Sounds, No Accessory Muscle Use, No Respiratory Distress Cardiovascular: Regular Rate, Rhythm, No Edema, No Gallop, No JVD, No Murmur, Normal Peripheral Pulses Gastrointestinal: Normal Bowel Sounds, No Organomegaly, No Pulsatile Mass, Non Tender, Soft Back: Normal Inspection, No CVA Tenderness, No Vertebral Tenderness Extremity: Normal Capillary Refill, Normal Inspection, Normal Range of Motion, Non Tender, No Calf Tenderness, No Pedal Edema Neurologic/Psychiatric: Alert, Oriented x3, No Motor/Sensory Deficits, Normal Mood/Affect Skin: Normal Color, Warm/Dry Lymphatic: No Adenopathy Assessment/Plan Assessment and Plan Assessment: A-fib with RVR Hypertension Sjogren's Plan: Supportive care Monitor closely Discharge is planned Admission Diagnosis Admission Status: Observation Supervisory-Addendum Brief Verification & Attestation Participated in pt care: history, MDM, physical Personally performed: exam, history, MDM, supervision of care Care discussed with: Medical Student Procedures: n/a Results interpretation: Verified all documentation Verification and Attestation of Medical Student E/M Service A medical student performed and documented this service in my presence. I reviewed and verified all information documented by the medical student and made modifications to such information, when appropriate. I personally performed the physical exam and medical decision making. Earline Morales, Aug 05, 2023,20:53 MARLIN HAY Aug 05, 2023 07:47 EARLINE MORALES DO Aug 05, 2023 20:54
--- NOTE | 2023-08-05 08:09 | Consultation-Cardiology ---
HPI-Cardiology Cardiology Consultation Date of Consultation 08/05/23 Date of Admission Time Seen by Provider: 08:09 Indication: Atrial fibrillation HPI 88-year-old lady with a history of atrial fibrillation maintained on Tikosyn. Has history of hypertension and COPD. She was in her usual state of health until yesterday evening when she had an episode of atrial fibrillation, felt palpitation and came into the emergency room. Patient continues to be in atrial fibrillation, her oral Tikosyn was continued. This morning she converted to sinus rhythm. She reported that in the past 4 years this is her first episodes of palpitation. Denied any chest pain or shortness of breath. No syncope or near syncopal episode and has been following with Dr. 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 Recent Hopitalizations: No (Heart cath 02/14/19) Alcohol Use?: No Immunizations Up To Date Date of Pneumonia Vaccine: Jul 18, 2017 Past Medical History Discussed below Family Medical History Significant Family History: No Pertinent Family Hx Review of Systems-General Review of Systems Constitutional: see HPI EENTM: see HPI Respiratory: see HPI; No cough, No dyspnea on exertion, No hemoptysis, No orthopnea, No phlegm, No short of breath, No stridor, No wheezing, No other Cardiovascular: see HPI; No chest pain, No edema, No Hx of Intervention; palpitations; No syncope, No vascular heart diseas, No other Gastrointestinal: see HPI Genitourinary: see HPI Musculoskeletal: see HPI Skin: see HPI Psychiatric/Neurological: See HPI Reviewed Test Results Reviewed Test Results Lab Laboratory Tests Test 08/04/23 20:42 08/05/23 04:45 Range/Units White Blood Count 7.8 7.0 4.3-11.0 10^3/uL Red Blood Count 4.40 4.02 3.80-5.11 10^6/uL Hemoglobin 13.4 12.5 11.5-16.0 g/dL Hematocrit 40 37 35-52 % Mean Corpuscular Volume 91 91 80-99 fL Mean Corpuscular Hemoglobin 31 31 25-34 pg Mean Corpuscular Hemoglobin Concent 34 34 32-36 g/dL Red Cell Distribution Width 13.4 13.4 10.0-14.5 % Platelet Count 309 249 130-400 10^3/uL Mean Platelet Volume 10.1 10.2 9.0-12.2 fL Immature Granulocyte % (Auto) 0 0 % Neutrophils (%) (Auto) 41 L 44 42-75 % Lymphocytes (%) (Auto) 42 41 12-44 % Monocytes (%) (Auto) 12 11 0-12 % Eosinophils (%) (Auto) 4 3 0-10 % Basophils (%) (Auto) 1 1 0-10 % Neutrophils # (Auto) 3.2 3.1 1.8-7.8 10^3/uL Lymphocytes # (Auto) 3.3 2.8 1.0-4.0 10^3/uL Monocytes # (Auto) 0.9 0.8 0.0-1.0 10^3/uL Eosinophils # (Auto) 0.3 0.2 0.0-0.3 10^3/uL Basophils # (Auto) 0.1 0.1 0.0-0.1 10^3/uL Immature Granulocyte # (Auto) 0.0 0.0 0.0-0.1 10^3/uL Prothrombin Time 13.9 12.2-14.7 SEC INR Comment 1.0 0.8-1.4 Activated Partial Thromboplast Time 30 24-35 SEC Sodium Level 136 137 135-145 MMOL/L Potassium Level 4.0 4.3 3.6-5.0 MMOL/L Chloride Level 104 107 98-107 MMOL/L Carbon Dioxide Level 22 19 L 21-32 MMOL/L Anion Gap 10 11 5-14 MMOL/L Blood Urea Nitrogen 17 17 7-18 MG/DL Creatinine 1.15 1.06 0.60-1.30 MG/DL Estimat Glomerular Filtration Rate 46 51 BUN/Creatinine Ratio 15 16 Glucose Level 109 H 110 H 70-105 MG/DL Calcium Level 10.2 H 9.4 8.5-10.1 MG/DL Corrected Calcium 10.1 9.7 8.5-10.1 MG/DL Magnesium Level 2.0 1.8 1.6-2.4 MG/DL Total Bilirubin 0.2 0.3 0.1-1.0 MG/DL Aspartate Amino Transf (AST/SGOT) 20 16 5-34 U/L Alanine Aminotransferase (ALT/SGPT) 14 12 0-55 U/L Alkaline Phosphatase 70 56 40-136 U/L Troponin I < 0.028 <0.028 NG/ML Total Protein 8.4 H 7.4 6.4-8.2 GM/DL Albumin 4.1 3.6 3.2-4.5 GM/DL Phosphorus Level 3.8 2.3-4.7 MG/DL Triglycerides Level 95 <150 MG/DL Cholesterol Level 122 < 200 MG/DL LDL Cholesterol Direct 88 1-129 MG/DL VLDL Cholesterol 19 5-40 MG/DL HDL Cholesterol 30 L 40-60 MG/DL Physical Exam Physical Exam Vital Signs Vital Signs - First Documented 08/04/23 08/05/23 08/05/23 20:38 00:00 00:27 Temp 36.8 Pulse 125 Resp 18 B/P (MAP) 149/107 (121) Pulse Ox 94 O2 Delivery Room Air O2 Flow Rate 3.00 FiO2 21 Capillary Refill : Less Than 3 Seconds Height, Weight, BMI Height: 5'2.00" Weight: 132lbs. 0.0oz. 59.149642qu; 27.77 BMI Method:Stated General Appearance: Obese HEENT: PERRL/EOMI, Pharynx Normal, Other (oral mucosa dry) Neck: Full Range of Motion, Normal Inspection (no lesions, erythema, or bruising.), Non Tender, Supple Respiratory: Chest Non Tender, Lungs Clear, Normal Breath Sounds (CTAB w/o adventitious sounds), No Accessory Muscle Use, No Respiratory Distress Cardiovascular: Regular Rate, Rhythm, No Edema, No Gallop, No JVD, No Murmur, Normal Peripheral Pulses Gastrointestinal: Normal Bowel Sounds, No Organomegaly, No Pulsatile Mass, Non Tender, Soft Extremity: Normal Capillary Refill, Non Tender (UE and LE b/l), No Calf Tenderness (b/l), No Pedal Edema Neurologic/Psychiatric: Alert, Oriented x3, No Motor/Sensory Deficits, Normal Mood/Affect Skin: Normal Color, Warm/Dry A/P-Cardiology Admission Diagnosis Paroxysmal atrial fibrillation Palpitation Hypertension COPD Assessment/Plan Paroxysmal atrial fibrillation, has been maintained on Tikosyn Converted back to sinus rhythm on August 05, 2023 Continue on Tikosyn and oral anticoagulation, no changes are recommended I educated the patient and her daughter and visit with them and discussed her treatment plan, recommended that she continue taking her medication if she goes back to atrial fibrillation and wait at least 24 hours before coming to the [facility] unless she becomes uncomfortable. Hypertension, restart home medication and monitor blood pressure History of COPD Palpitation, resolved Okay for discharge and follow-up with Dr. Clancy as scheduled next week CASS BENZ MD Aug 05, 2023 08:09
[2023-08-05] MEDS: DOFETILIDE 125 MCG CAPSULE PO SCH ×2 (08:58→09:01)
[2023-08-05] MEDS ORDERED: ASCO500T17 PO (11:24)
[2023-08-05] MEDS ORDERED: DOFE250C3 PO (11:24)
[2023-08-05] MEDS ORDERED: GLUC100016 PO (11:24)
[2023-08-05] MEDS ORDERED: SPIR25TA PO (11:24)
--- NOTE | 2023-08-05 11:40 | Discharge Summary ---
Diagnosis/Chief Complaint Date of Admission Aug 04, 2023 at 23:29 Date of Discharge Discharge Date: Aug 05, 2023 Discharge Summary Discharge Physical Examination Allergies: Coded Allergies: Sulfa (Sulfonamide Antibiotics) (Verified Allergy, Unknown, 03/03/19) Vitals & I&Os Vital Signs Date Time Temp Pulse Resp B/P (MAP) Pulse Ox O2 Delivery O2 Flow Rate FiO2 08/05/23 12:00 67 156/80 (107) 95 Room Air 08/05/23 11:56 36.8 08/05/23 10:56 0.00 08/05/23 00:37 21 08/04/23 23:29 18 Hospital Course Labs (last 24 hrs) Laboratory Tests 08/04/23 20:42: White Blood Count 7.8, Red Blood Count 4.40, Hemoglobin 13.4, Hematocrit 40, Mean Corpuscular Volume 91, Mean Corpuscular Hemoglobin 31, Mean Corpuscular Hemoglobin Concent 34, Red Cell Distribution Width 13.4, Platelet Count 309, Mean Platelet Volume 10.1, Immature Granulocyte % (Auto) 0, Neutrophils (%) (Auto) 41L, Lymphocytes (%) (Auto) 42, Monocytes (%) (Auto) 12, Eosinophils (%) (Auto) 4, Basophils (%) (Auto) 1, Neutrophils # (Auto) 3.2, Lymphocytes # (Auto) 3.3, Monocytes # (Auto) 0.9, Eosinophils # (Auto) 0.3, Basophils # (Auto) 0.1, Immature Granulocyte # (Auto) 0.0, Prothrombin Time 13.9, INR Comment 1.0, Activated Partial Thromboplast Time 30, Sodium Level 136, Potassium Level 4.0, Chloride Level 104, Carbon Dioxide Level 22, Anion Gap 10, Blood Urea Nitrogen 17, Creatinine 1.15, Estimat Glomerular Filtration Rate 46, BUN/Creatinine Ratio 15, Glucose Level 109H, Calcium Level 10.2H, Corrected Calcium 10.1, Magnesium Level 2.0, Total Bilirubin 0.2, Aspartate Amino Transf (AST/SGOT) 20, Alanine Aminotransferase (ALT/SGPT) 14, Alkaline Phosphatase 70, Troponin I < 0.028, Total Protein 8.4H, Albumin 4.1 08/05/23 04:45: White Blood Count 7.0, Red Blood Count 4.02, Hemoglobin 12.5, Hematocrit 37, Mean Corpuscular Volume 91, Mean Corpuscular Hemoglobin 31, Mean Corpuscular Hemoglobin Concent 34, Red Cell Distribution Width 13.4, Platelet Count 249, Mean Platelet Volume 10.2, Immature Granulocyte % (Auto) 0, Neutrophils (%) (Auto) 44, Lymphocytes (%) (Auto) 41, Monocytes (%) (Auto) 11, Eosinophils (%) (Auto) 3, Basophils (%) (Auto) 1, Neutrophils # (Auto) 3.1, Lymphocytes # (Auto) 2.8, Monocytes # (Auto) 0.8, Eosinophils # (Auto) 0.2, Basophils # (Auto) 0.1, Immature Granulocyte # (Auto) 0.0, Sodium Level 137, Potassium Level 4.3, Chloride Level 107, Carbon Dioxide Level 19L, Anion Gap 11, Blood Urea Nitrogen 17, Creatinine 1.06, Estimat Glomerular Filtration Rate 51, BUN/Creatinine Ratio 16, Glucose Level 110H, Calcium Level 9.4, Corrected Calcium 9.7, Magnesium Level 1.8, Total Bilirubin 0.3, Aspartate Amino Transf (AST/SGOT) 16, Alanine Aminotransferase (ALT/SGPT) 12, Alkaline Phosphatase 56, Total Protein 7.4, Albumin 3.6, Phosphorus Level 3.8, Triglycerides Level 95, Cholesterol Level 122, LDL Cholesterol Direct 88, VLDL Cholesterol 19, HDL Cholesterol 30L Pending Labs Laboratory Tests 08/04/23 20:42: White Blood Count 7.8, Red Blood Count 4.40, Hemoglobin 13.4, Hematocrit 40, Mean Corpuscular Volume 91, Mean Corpuscular Hemoglobin 31, Mean Corpuscular Hemoglobin Concent 34, Red Cell Distribution Width 13.4, Platelet Count 309, Mean Platelet Volume 10.1, Immature Granulocyte % (Auto) 0, Neutrophils (%) (Auto) 41, Lymphocytes (%) (Auto) 42, Monocytes (%) (Auto) 12, Eosinophils (%) (Auto) 4, Basophils (%) (Auto) 1, Neutrophils # (Auto) 3.2, Lymphocytes # (Auto) 3.3, Monocytes # (Auto) 0.9, Eosinophils # (Auto) 0.3, Basophils # (Auto) 0.1, Immature Granulocyte # (Auto) 0.0, Prothrombin Time 13.9, INR Comment 1.0, Activated Partial Thromboplast Time 30, Sodium Level 136, Potassium Level 4.0, Chloride Level 104, Carbon Dioxide Level 22, Anion Gap 10, Blood Urea Nitrogen 17, Creatinine 1.15, Estimat Glomerular Filtration Rate 46, BUN/Creatinine Ratio 15, Glucose Level 109, Calcium Level 10.2, Corrected Calcium 10.1, Magnesium Level 2.0, Total Bilirubin 0.2, Aspartate Amino Transf (AST/SGOT) 20, Alanine Aminotransferase (ALT/SGPT) 14, Alkaline Phosphatase 70, Troponin I < 0.028, Total Protein 8.4, Albumin 4.1 08/05/23 04:45: White Blood Count 7.0, Red Blood Count 4.02, Hemoglobin 12.5, Hematocrit 37, Mean Corpuscular Volume 91, Mean Corpuscular Hemoglobin 31, Mean Corpuscular Hemoglobin Concent 34, Red Cell Distribution Width 13.4, Platelet Count 249, Mean Platelet Volume 10.2, Immature Granulocyte % (Auto) 0, Neutrophils (%) (Auto) 44, Lymphocytes (%) (Auto) 41, Monocytes (%) (Auto) 11, Eosinophils (%) (Auto) 3, Basophils (%) (Auto) 1, Neutrophils # (Auto) 3.1, Lymphocytes # (Auto) 2.8, Monocytes # (Auto) 0.8, Eosinophils # (Auto) 0.2, Basophils # (Auto) 0.1, Immature Granulocyte # (Auto) 0.0, Sodium Level 137, Potassium Level 4.3, Chloride Level 107, Carbon Dioxide Level 19, Anion Gap 11, Blood Urea Nitrogen 17, Creatinine 1.06, Estimat Glomerular Filtration Rate 51, BUN/Creatinine Ratio 16, Glucose Level 110, Calcium Level 9.4, Corrected Calcium 9.7, Magnesium Level 1.8, Total Bilirubin 0.3, Aspartate Amino Transf (AST/SGOT) 16, Alanine Aminotransferase (ALT/SGPT) 12, Alkaline Phosphatase 56, Total Protein 7.4, Albumin 3.6, Phosphorus Level 3.8, Triglycerides Level 95, Cholesterol Level 122, LDL Cholesterol Direct 88, VLDL Cholesterol 19, HDL Cholesterol 30 Discharge Home Medications: Active Scripts Active Lisinopril 10 Mg Tablet 10 Mg PO DAILY Reported Vitamin C (Ascorbic Acid) 500 Mg Tablet 600 Mg PO DAILY Glucosamine (Glucosamine Sulfate 2Kcl) 1,000 Mg Tablet 1,500 Mg PO DAILY Aldactone (Spironolactone) 25 Mg Tablet 25 Mg PO DAILY Dofetilide 250 Mcg Capsule 250 Mcg PO BID Calcium + Vitamin D Tablet (Calcium Carbonate/Vitamin D3) 1 Each Tablet 1 Each PO BID Metoprolol Succinate 100 Mg Tab.er.24h 100 Mg PO DAILY Montelukast Sodium 10 Mg Tablet 10 Mg PO DAILY Xarelto (Rivaroxaban) 20 Mg Tablet 20 Mg PO DAILY Alavert (Loratadine) 10 Mg Tab.rapdis 10 Mg PO DAILY Fluticasone Propionate 15.8 Ml [place].susp 1 [place] NS DAILY Acetaminophen 500 Mg Tablet 500 Mg PO PRN PRN Klor-Con (Potassium Chloride) 10 Meq Capcr 10 Meq PO BID Instructions to patient/family Please see electronic discharge instructions given to patient. KAVIN MORALES DO Aug 05, 2023 11:40
--- NOTE | 2023-08-05 12:16 | Discharge Summary ---
Diagnosis/Chief Complaint Date of Admission Aug 04, 2023 at 23:29 Date of Discharge Discharge Date: Aug 05, 2023 Discharge Diagnosis Assessment: A-fib with RVR Hypertension Sjogren's Discharge Summary Discharge Physical Examination Allergies: Coded Allergies: Sulfa (Sulfonamide Antibiotics) (Verified Allergy, Unknown, 03/03/19) Vitals & I&Os Vital Signs Date Time Temp Pulse Resp B/P (MAP) Pulse Ox O2 Delivery O2 Flow Rate FiO2 08/05/23 12:54 08/05/23 12:18 796 08/05/23 12:00 96 Room Air 08/05/23 11:56 36.8 08/05/23 10:56 0.00 08/05/23 00:37 21 08/04/23 23:29 18 General Appearance: Alert, Oriented X3, Cooperative Respiratory: Clear to Auscultation Cardiovascular: Regular Rate Hospital Course Was the Problem List Reviewed?: Yes See HPI and discharge Labs (last 24 hrs) Laboratory Tests 08/04/23 20:42: White Blood Count 7.8, Red Blood Count 4.40, Hemoglobin 13.4, Hematocrit 40, Mean Corpuscular Volume 91, Mean Corpuscular Hemoglobin 31, Mean Corpuscular Hemoglobin Concent 34, Red Cell Distribution Width 13.4, Platelet Count 309, Mean Platelet Volume 10.1, Immature Granulocyte % (Auto) 0, Neutrophils (%) (Auto) 41L, Lymphocytes (%) (Auto) 42, Monocytes (%) (Auto) 12, Eosinophils (%) (Auto) 4, Basophils (%) (Auto) 1, Neutrophils # (Auto) 3.2, Lymphocytes # (Auto) 3.3, Monocytes # (Auto) 0.9, Eosinophils # (Auto) 0.3, Basophils # (Auto) 0.1, Immature Granulocyte # (Auto) 0.0, Prothrombin Time 13.9, INR Comment 1.0, Activated Partial Thromboplast Time 30, Sodium Level 136, Potassium Level 4.0, Chloride Level 104, Carbon Dioxide Level 22, Anion Gap 10, Blood Urea Nitrogen 17, Creatinine 1.15, Estimat Glomerular Filtration Rate 46, BUN/Creatinine Ratio 15, Glucose Level 109H, Calcium Level 10.2H, Corrected Calcium 10.1, Magnesium Level 2.0, Total Bilirubin 0.2, Aspartate Amino Transf (AST/SGOT) 20, Alanine Aminotransferase (ALT/SGPT) 14, Alkaline Phosphatase 70, Troponin I < 0.028, Total Protein 8.4H, Albumin 4.1 08/05/23 04:45: White Blood Count 7.0, Red Blood Count 4.02, Hemoglobin 12.5, Hematocrit 37, Mean Corpuscular Volume 91, Mean Corpuscular Hemoglobin 31, Mean Corpuscular Hemoglobin Concent 34, Red Cell Distribution Width 13.4, Platelet Count 249, Mean Platelet Volume 10.2, Immature Granulocyte % (Auto) 0, Neutrophils (%) (Auto) 44, Lymphocytes (%) (Auto) 41, Monocytes (%) (Auto) 11, Eosinophils (%) (Auto) 3, Basophils (%) (Auto) 1, Neutrophils # (Auto) 3.1, Lymphocytes # (Auto) 2.8, Monocytes # (Auto) 0.8, Eosinophils # (Auto) 0.2, Basophils # (Auto) 0.1, Immature Granulocyte # (Auto) 0.0, Sodium Level 137, Potassium Level 4.3, Chloride Level 107, Carbon Dioxide Level 19L, Anion Gap 11, Blood Urea Nitrogen 17, Creatinine 1.06, Estimat Glomerular Filtration Rate 51, BUN/Creatinine Ratio 16, Glucose Level 110H, Calcium Level 9.4, Corrected Calcium 9.7, Magnesium Level 1.8, Total Bilirubin 0.3, Aspartate Amino Transf (AST/SGOT) 16, Alanine Aminotransferase (ALT/SGPT) 12, Alkaline Phosphatase 56, Total Protein 7.4, Albumin 3.6, Phosphorus Level 3.8, Triglycerides Level 95, Cholesterol Level 122, LDL Cholesterol Direct 88, VLDL Cholesterol 19, HDL Cholesterol 30L Pending Labs Laboratory Tests 08/04/23 20:42: White Blood Count 7.8, Red Blood Count 4.40, Hemoglobin 13.4, Hematocrit 40, Mean Corpuscular Volume 91, Mean Corpuscular Hemoglobin 31, Mean Corpuscular Hemoglobin Concent 34, Red Cell Distribution Width 13.4, Platelet Count 309, Mean Platelet Volume 10.1, Immature Granulocyte % (Auto) 0, Neutrophils (%) (Auto) 41, Lymphocytes (%) (Auto) 42, Monocytes (%) (Auto) 12, Eosinophils (%) (Auto) 4, Basophils (%) (Auto) 1, Neutrophils # (Auto) 3.2, Lymphocytes # (Auto) 3.3, Monocytes # (Auto) 0.9, Eosinophils # (Auto) 0.3, Basophils # (Auto) 0.1, Immature Granulocyte # (Auto) 0.0, Prothrombin Time 13.9, INR Comment 1.0, Activated Partial Thromboplast Time 30, Sodium Level 136, Potassium Level 4.0, Chloride Level 104, Carbon Dioxide Level 22, Anion Gap 10, Blood Urea Nitrogen 17, Creatinine 1.15, Estimat Glomerular Filtration Rate 46, BUN/Creatinine Ratio 15, Glucose Level 109, Calcium Level 10.2, Corrected Calcium 10.1, Magnesium Level 2.0, Total Bilirubin 0.2, Aspartate Amino Transf (AST/SGOT) 20, Alanine Aminotransferase (ALT/SGPT) 14, Alkaline Phosphatase 70, Troponin I < 0.028, Total Protein 8.4, Albumin 4.1 08/05/23 04:45: White Blood Count 7.0, Red Blood Count 4.02, Hemoglobin 12.5, Hematocrit 37, Mean Corpuscular Volume 91, Mean Corpuscular Hemoglobin 31, Mean Corpuscular Hemoglobin Concent 34, Red Cell Distribution Width 13.4, Platelet Count 249, Mean Platelet Volume 10.2, Immature Granulocyte % (Auto) 0, Neutrophils (%) (Auto) 44, Lymphocytes (%) (Auto) 41, Monocytes (%) (Auto) 11, Eosinophils (%) (Auto) 3, Basophils (%) (Auto) 1, Neutrophils # (Auto) 3.1, Lymphocytes # (Auto) 2.8, Monocytes # (Auto) 0.8, Eosinophils # (Auto) 0.2, Basophils # (Auto) 0.1, Immature Granulocyte # (Auto) 0.0, Sodium Level 137, Potassium Level 4.3, Chloride Level 107, Carbon Dioxide Level 19, Anion Gap 11, Blood Urea Nitrogen 17, Creatinine 1.06, Estimat Glomerular Filtration Rate 51, BUN/Creatinine Ratio 16, Glucose Level 110, Calcium Level 9.4, Corrected Calcium 9.7, Magnesium Level 1.8, Total Bilirubin 0.3, Aspartate Amino Transf (AST/SGOT) 16, Alanine Aminotransferase (ALT/SGPT) 12, Alkaline Phosphatase 56, Total Protein 7.4, Albumin 3.6, Phosphorus Level 3.8, Triglycerides Level 95, Cholesterol Level 122, LDL Cholesterol Direct 88, VLDL Cholesterol 19, HDL Cholesterol 30 Discharge Home Medications: Active Scripts Active Lisinopril 10 Mg Tablet 10 Mg PO DAILY Reported Vitamin C (Ascorbic Acid) 500 Mg Tablet 600 Mg PO DAILY Glucosamine (Glucosamine Sulfate 2Kcl) 1,000 Mg Tablet 1,500 Mg PO DAILY Aldactone (Spironolactone) 25 Mg Tablet 25 Mg PO DAILY Dofetilide 250 Mcg Capsule 250 Mcg PO BID Calcium + Vitamin D Tablet (Calcium Carbonate/Vitamin D3) 1 Each Tablet 1 Each PO BID Montelukast Sodium 10 Mg Tablet 10 Mg PO DAILY Xarelto (Rivaroxaban) 20 Mg Tablet 20 Mg PO DAILY Alavert (Loratadine) 10 Mg Tab.rapdis 10 Mg PO DAILY Fluticasone Propionate 15.8 Ml [place].susp 1 [place] NS DAILY Acetaminophen 500 Mg Tablet 500 Mg PO PRN PRN Klor-Con (Potassium Chloride) 10 Meq Capcr 10 Meq PO BID Instructions to patient/family Please see electronic discharge instructions given to patient. KAVIN MORALES DO Aug 05, 2023 12:16
[2023-08-05] MEDS ORDERED: RIVAROXABAN 15 MG TABLET PO SCH (17:00)
== END 2023-08-05 10:50 | disposition home or self-care (01) ==
LOC: EDUNIT# 20:31 → ER 20:33 → ICU 23:29 → UNDOADMOB 23:29 → ICU 23:50 → UNDODISOB 08-05 10:50
PROVIDERS: ADMIT Internal Medicine; ATTEND Internal Medicine
DX: I48.0 Paroxysmal atrial fibrillation (principal); I10 Essential (primary) hypertension; M35.00 Sjogren syndrome, unspecified; R00.2 Palpitations; J44.9 Chronic obstructive pulmonary disease, unspecified; Z79.01 Long term (current) use of anticoagulants; Z79.82 Long term (current) use of aspirin; Z79.899 Other long term (current) drug therapy
CPT/HCPCS: 36415; 71045; 80053; 80061; 83735; 84100; 84484; 85025; 85610; 85730; 87081; 93005; 93041; 96361; 96365; 96366; 96375; G0378